=== PATIENT | male | born 1950 | race Caucasian/White ===

== ENCOUNTER 2020-02-27 01:18 | Emergency (ER) | payer OTHER, MEDICARE ==
[2020-02-27] MEDS: fentaNYL 50 MCG/ML SDV IVPUSH ONE (01:45)
--- NOTE | 2020-02-27 02:05 | EDM.PDOC ---
ED HPI GENERAL MEDICAL PROBLEM - General Chief Complaint: General Stated Complaint: Fall, rib pain Time Seen by Provider: 02/27/20 01:18 Source of Information: Reports: Patient History Limitations: Reports: No Limitations - History of Present Illness INITIAL COMMENTS - FREE TEXT/NARRATIVE: Patient comes emergency department today from home by ambulance with concerns of a fall and a loss of consciousness. This patient was getting up and ambulating in his house after drinking alcohol tonight when he stumbled on his shoes and he fell. When he fell he struck his face and his head and had a loss of consciousness according to the about 1 minute. He also landed injuring his left chest wall. Prior to his fall he had no symptoms of weakness dizziness lightheadedness or. He tripped on his shoes and fell. He had a loss of consciousness for about 1 minute. He denies any visual acuity changes. He does complain of a headache. He also complains of some neck pain but he kind of chronically has neck pain from cervical surgery on C3. He denies any paresthesias in upper or lower extremities. Denies any change in the functionality of his upper or lower extremities. He does complain of shortness of breath primarily because it hurts so bad to take a deep breath. His pain is severe on the left anterolateral chest and the anterior axillary line. No abdominal pain nausea or vomiting. No back pain. No loss of bowel or bladder. No Covid exposure no Covid symptoms. left rib/lower chest Pain Score (Numeric/FACES): 5 - Related Data Allergies Allergy/AdvReac Type Severity Reaction Status Date / Time tramadol [From Ultram] Allergy Other Verified 02/27/20 03:11 Home Meds: Home Meds . [Unable to Verify Home Med List] 02/27/20 [History] ED ROS GENERAL - Review of Systems Review Of Systems: Comprehensive ROS is negative, except as noted in HPI. ED EXAM, GENERAL - Physical Exam Exam: See Below Free Text/Narrative:: The patient is holding his left anterolateral chest and the anterior mid axillary line moaning in pain and stating that he cannot catch his breath. He is clearly in no respiratory distress. He did just have a left hip replaced which is made it difficult for him to ambulate at times and he thinks that is why he fell tripping on his shoes. Exam Limited By: No Limitations General Appearance: Alert, WD/WN, Mild Distress Eye Exam: Bilateral Eye: EOMI, PERRL Ears: Normal External Exam, Normal TMs Nose: Normal Inspection, Normal Mucosa Throat/Mouth: Normal Inspection, Normal Lips Head: Normocephalic. No: Atraumatic (He has an abrasion on the top of his head without any bony deformity or crepitus. There is a small abrasion to his right zygomatic arch without any bony deformity the rest of his face is atraumatic.) Neck: Normal Inspection, Supple (C Collar in place prior to arrival. ), Tender Lateral. No: Tender Midline Respiratory/Chest: No Respiratory Distress, Lungs Clear, Normal Breath Sounds, Other (He has tenderness and bruising in the anterior left mid axillary line about the fifth intercostal space. There is no crepitus subcutaneous emphysema or overt bony deformity.) Cardiovascular: Normal Peripheral Pulses, Regular Rate, Rhythm Peripheral Pulses: 2+: Radial (L), Radial (R), Posterior Tibial (L), Posterior Tibial (R), Dorsalis Pedis (L), Dorsalis Pedis (R) GI/Abdominal: Normal Bowel Sounds, Soft, Non-Tender, Pelvis Stable (Male) Exam: Deferred Rectal (Males) Exam: Deferred Back Exam: Normal Inspection, Full Range of Motion Extremities: Normal Inspection, Normal Range of Motion, Non-Tender, Normal Capillary Refill, Other (All healed lateral incision of the left hip consistent with a hip replacement that is unremarkable.) Neurological: Alert, Oriented, CN II-XII Intact, Normal Cognition, Normal Gait, No Motor/Sensory Deficits Psychiatric: Normal Affect, Normal Mood Skin Exam: Warm, Dry, Intact, Normal Color, No Rash Course - Vital Signs Last Recorded V/S: Last Vital Signs Temp 98.7 F 02/27/20 01:18 Pulse 91 02/27/20 02:50 Resp 18 02/27/20 02:50 BP 153/94 H 02/27/20 02:50 Pulse Ox 96 02/27/20 02:50 - Orders/Labs/Meds Labs: Laboratory Tests 02/27/20 02/27/20 Range/Units 01:57 01:57 WBC 6.9 (4.0-10.0) x10^3/uL RBC 4.64 (4.5-6.0) x10^6/uL Hgb 15.7 (14.0-18.0) g/dL Hct 44.2 (40.0-52.0) % MCV 95.3 H (78.0-93.0) fL MCH 33.8 H (26.0-32.0) pg MCHC 35.5 (32.0-36.0) g/dL RDW Coeff of Ethan 13.4 (10.0-15.0) % Plt Count 173 (130-400) x10^3/uL Neut % (Auto) 67.7 (50.0-80.0) % Lymph % (Auto) 19.9 L (25.0-50.0) % [place] % (Auto) 10.1 (2.0-11.0) % Eos % (Auto) 1.4 (0.0-4.0) % Baso % (Auto) 0.9 (0.2-1.2) % Sodium 137 (136-145) mmol/L Potassium 3.2 L (3.5-5.1) mmol/L Chloride 97 L (98-107) mmol/L Carbon Dioxide 24 (21-32) mmol/L Anion Gap 19.2 (10-20) mmol/L BUN 15 (7-18) mg/dL Creatinine 1.3 (0.70-1.30) mg/dL Est Cr Clr Drug Dosing TNP Estimated GFR (MDRD) 55 Glucose 135 H (74-106) mg/dL Calcium 8.9 (8.5-10.1) mg/dL Corrected Calcium 8.98 (8.5-10.1) mg/dL Total Bilirubin 0.7 (0.2-1.0) mg/dL AST 85 H (15-37) U/L ALT 105 H (16-63) U/L Alkaline Phosphatase 102 (46-116) U/L Total Protein 7.3 (6.4-8.2) g/dL Albumin 3.9 (3.4-5.0) g/dL Globulin 3.4 Albumin/Globulin Ratio 1.15 Ethyl Alcohol 287 H (0-3) mg/dL Meds: Medications Discontinued Medications Generic Name Dose Route Start Last Admin Trade Name Freq PRN Reason Stop Dose Admin Fentanyl 50 mcg 02/27/20 01:41 12/10/20 01:45 Fentanyl IVPUSH 02/27/20 01:42 50 mcg ONETIME ONE Administration Hydromorphone HCl 0.5 mg 02/27/20 02:39 02/27/20 02:45 Dilaudid IV 02/27/20 02:40 0.5 mg ONETIME ONE Administration Ketorolac Tromethamine 15 mg 02/27/20 03:58 02/27/20 04:05 Toradol IVPUSH 02/27/20 03:59 15 mg ONETIME ONE Administration - Radiology Interpretation Free Text/Narrative:: CT of the head per radiology shows no acute process. CT cervical spine shows no acute fracture or subluxation some other chronic changes. Per radiology. Chest x-ray no hemopneumothorax. No rib fractures per radiology. - Re-Assessments/Exams Free Text/Narrative Re-Assessment/Exam: 02/27/20 02:05 The c-collar was left in place. Labs are drawn. She is quite uncomfortable holding his left chest. He was given 50 mcg of fentanyl. He smells highly of alcoholic beverages does admit to drinking alcohol tonight. Laboratory evaluation White blood cell count 6.9, hemoglobin 15.7, platelets 173. Sodium 137 potassium 3.2 chloride 97 BUN 15 creatinine 1.3T bili is 0.7 AST 85 ALT 105. Alcohol 287. CT of the head neck and chest per radiology with no acute findings. I was able to remove the C collar and he was able to flex and extend his neck without any pain or parathesia. He was still having quite a bit of rib chest pain. He was given Dilaudid as well as Toradol. Despite his chest x-ray being negative urology for fractures he most likely has a couple broken ribs. There is no hemopneumothorax. He is quite intoxicated at this time and it is somewhat difficult to physically assess him. We did get him up from the bed and ambulated around the emergency department. He was able to ambulate very easily without difficulty. Repeat primary and secondary survey does not elicit any new findings. We will discharge him home by cab with his who is at home she does not drive at night. He is comfortable with this plan and his questions are answered. Departure - Departure Time of Disposition: 03:58 Disposition: Home, Self-Care 01 Clinical Impression: Facial abrasion Qualifiers: Encounter type: initial encounter Qualified Code(s): S00.81XA - Abrasion of other part of head, initial encounter Acute alcoholic intoxication Qualifiers: Complication of substance-induced condition: uncomplicated Qualified Code(s): F10.920 - Alcohol use, unspecified with intoxication, uncomplicated Chest wall injury Qualifiers: Encounter type: initial encounter Qualified Code(s): S29.9XXA - Unspecified injury of thorax, initial encounter - Discharge Information Instructions: Binge-Drinking Information, Adult, Abrasion, [id number], Blunt Chest Trauma Referrals: PCP,Unobtain [Ordering Only Provider] - Forms: ED Department Discharge Additional Instructions: Home rest the net few days. Drink plenty of fluids especially gatorade and or powerade. Ice to the sore areas. Abrasions cleanse twice daily with soap and water. Bacitracin and bandage until healed. If you are interested in assistance with your alcohol usage. Either follow up with [facility] or see your PCP. Tylenol and or Ibuprofen as needed for pain. Return to the ED if new or worsening symptoms. Follow up with PCP in the next 4-6 days if not improving sooner if worse. Sepsis Event Note (ED) - Focused Exam Vital Signs: Vital Signs Temp Pulse Resp BP Pulse Ox 02/27/20 02:50 91 18 153/94 H 96 02/27/20 01:18 98.7 F 94 16 137/79 95
[2020-02-27 02:24] LABS: ANION GAP 19.2 mmol/L (10-20); CHLORIDE,CL 97 mmol/L (98-107); SODIUM,NA 137 mmol/L (136-145)
[2020-02-27] MEDS: HYDROmorphone 0.5 MG/0.5 ML Syringe IV ONE (02:45)
[2020-02-27] MEDS: Ketorolac 30 MG/ML SDV IVPUSH ONE (04:05)
--- NOTE | 2020-02-27 08:07 | CR ---
[id number] RAD/RAD Chest PA or AP 1V EXAM: FRONTAL CHEST INDICATION: Fall with left rib pain, shortness of breath and left chest bruising. COMPARISON: CT January 15, 2019. DISCUSSION: Left anterior fifth and sixth rib fractures are suggested. No pneumothorax or pleural fluid is currently identified. Bibasilar linear opacities most consistent with atelectasis. Prominent cardiac shadow with no evidence of heart failure. Tortuous thoracic aorta. Results called at time of dictation. IMPRESSION: 1. Acute anterior left fifth and sixth rib fractures are suggested. No pneumothorax. Junior Carrera MD 02/27/20 0805 Thank you for allowing us to participate in the care of your patient.
--- NOTE | 2020-02-27 08:07 | CT ---
[id number] CT/CT Head WO IV EXAM: NONCONTRAST HEAD CT INDICATION: Fall with head injury and loss of consciousness. COMPARISON: None. DISCUSSION: Mild right anterior scalp soft tissue swelling. There is mild generalized atrophy. Mild multifocal white matter hypoattenuation is nonspecific, but generally ascribed to chronic small vessel ischemia. Possible small chronic bilateral basal ganglia lacunar infarcts. No mass effect or midline shift. No acute hemorrhage or extra-axial fluid collection. No acute territorial infarct is identified. A limited look at the orbits and paranasal sinuses is unremarkable. IMPRESSION: 1. No acute intracranial findings. Junior Carrera MD 02/27/20 0804 Thank you for allowing us to participate in the care of your patient.
--- NOTE | 2020-02-27 08:12 | CT ---
[id number] CT/CT Cervical Spine WO IV EXAM: NONCONTRAST CERVICAL SPINE CT INDICATION: Fall with cervical pain. COMPARISON: Radiographs January 17, 2008. DISCUSSION: Straightening of the cervical lordosis. Anterior fusion with plate and screw fixation and osseous bridging across the vertebral bodies at C4-C5. No evident hardware complication. Advanced disc degeneration at T1-T2 with moderate changes at the remaining disc levels. Acquired versus congenital fusion across the facets bilaterally at C2-C3 and on the left C3-C4 and C4-C5. There is at least moderate facet arthropathy throughout the cervical spine. These changes result in osseous central and foraminal stenosis at multiple levels with central stenosis most significant at at C6-C7 and significant foraminal stenosis seen at multiple levels. No acute fracture or subluxation is identified. IMPRESSION: 1. No acute findings. Junior Carrera MD 02/27/20 [id number] Thank you for allowing us to participate in the care of your patient.
== END 2020-02-27 04:20 | disposition home or self-care (01) ==
LOC: VM.ED 01:18
DX: S22.42XA Multiple fractures of ribs, left side, initial encounter for closed fracture (principal); S00.81XA Abrasion of other part of head, initial encounter; F10.120 Alcohol abuse with intoxication, uncomplicated; Y90.8 Blood alcohol level of 240 mg/100 ml or more; Z88.5 Allergy status to narcotic agent; W01.10XA Fall on same level from slipping, tripping and stumbling with subsequent striking against unspecified object, initial encounter
CPT/HCPCS: 36415; 70450; 71045; 72125; 80053; 80307; 85025; 96374; 96375; 99284; 99285-25; J1170; J1885; J3010

== ENCOUNTER 2020-07-05 10:14 | Emergency (ER) | payer OTHER, MEDICARE ==
[2020-07-05] MEDS ORDERED: Sodium Chloride 0.9% 10 ML Syringe FLUSH PRN (10:24)
[2020-07-05] MEDS ORDERED: Ketorolac 30 MG/ML SDV IVPUSH ONE (10:42)
--- NOTE | 2020-07-05 11:46 | EDM.PDOC ---
ED HPI GENERAL MEDICAL PROBLEM - General Chief Complaint: General Stated Complaint: FELL 07/04/2020 Time Seen by Provider: 07/05/20 10:19 Source of Information: Reports: Patient History Limitations: Reports: Other (forgetful, poor historian) - History of Present Illness INITIAL COMMENTS - FREE TEXT/NARRATIVE: Patient reports he fell yesterday in the bathroom when he slipped on water after a bath/shower. He denies hitting his head. Fell on his left chest. States he had a prior rib fracture to that same side. Notes some lower back/tailbone pain. No pain to left leg. Hip replacement there. 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 No shortening or rotation of left leg. No upper extremity pain/complaints. 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: Other (see below) (none) Left Thoracic Pain Score (Numeric/FACES): 9 Sacral Pain Score (Numeric/FACES): 9 - Related Data Allergies Allergy/AdvReac Type Severity Reaction Status Date / Time tramadol [From Ultram] Allergy Other Verified 07/05/20 10:47 Home Meds: Home Meds Albuterol Sulfate [Albuterol Sulfate Hfa] 2 puff INH QID PRN 03/25/20 [History] Budesonide/Formoterol Fumarate [Budesonide-Formoterol 160-4.5] 2 puff INH BID 03/25/20 [History] Cyclobenzaprine HCl 10 mg PO BEDTIME PRN 03/25/20 [History] DULoxetine HCl [Cymbalta] 60 mg PO DAILY 03/25/20 [History] Folic Acid 1 mg PO DAILY 03/25/20 [History] Guaifen/Dextromethorphan/PE [Dm-Guaif-PE 18-200-10 mg/15 ml] 10 ml PO Q6H PRN 03/25/20 [History] HCTZ/Triamterene [Maxzide 25-37.5 MG] 1 tab PO DAILY 03/25/20 [History] Latanoprost/Pf [Latanoprost 0.005% Eye Drop] 1 drop EYEBOTH BEDTIME 03/25/20 [History] Lidocaine HCl/PF [Lidocaine HCl 4% Ampul] 1 applic TOP BID 03/25/20 [History] Multivitamin with Minerals [Multivitamins with Minerals] 1 each PO DAILY 03/25/20 [History] Naltrexone 50 mg PO DAILY 03/25/20 [History] Nicotine [Nicotine Patch] 1 patch TOP DAILY 03/25/20 [History] Pantoprazole [ProTONIX] 40 mg PO BID 03/25/20 [History] Sildenafil [Viagra] 50 mg PO BEDTIME PRN 03/25/20 [History] Sucralfate 1 gm PO BID PRN 03/25/20 [History] Thiamine [Vitamin B-1] 100 mg PO DAILY 03/25/20 [History] Tiotropium [Spiriva] 18 mcg INH DAILY 03/25/20 [History] amLODIPine Besylate [Amlodipine Besylate] 10 mg PO DAILY 03/25/20 [History] atorvaSTATin Calcium [Atorvastatin Calcium] 40 mg PO BEDTIME 03/25/20 [History] Past Medical History HEENT History: Reports: Hard of Hearing Cardiovascular History: Reports: Heart Failure, High Cholesterol, Hypertension Respiratory History: Reports: COPD, Other (See Below) Other Respiratory History: sleep related hypoventilation, upper airway resistance syndrome Gastrointestinal History: Reports: Colon Polyp, GERD, Other (See Below) Other Gastrointestinal History: Barretts esophagus without dysplasia Genitourinary History: Reports: BPH, Chronic Renal Insuffiency, Urinary Incontinence, Other (See Below) Other Genitourinary History: renal glycosuria Musculoskeletal History: Reports: Back Pain, Chronic, Osteoarthritis, Other (See Below) Other Musculoskeletal History: cervicalgia, DJD, myalgia, spondylosis Neurological History: Reports: CVA, Migraines, Neuropathy, Peripheral, Other (See Below) Other Neuro History: dizziness and giddiness Psychiatric History: Reports: Depression, PTSD, Other (See Below) Other Psychiatric History: alcohol dependence, nicotine dependence Endocrine/Metabolic History: Reports: Diabetes, Type II, Hyperthyroidism, Obesity/BMI 30+, Vitamin D Deficiency Hematologic History: Reports: Anemia, Other (See Below) Other Hematologic History: leucocytosis, secondary polycythemia Dermatologic History: Reports: Seborrheic Dermatitis, Other (See Below) Other Dermatologic History: dermatitis - Past Surgical History Musculoskeletal Surgical History: Reports: Other (See Below) Other Musculoskeletal Surgeries/Procedures:: left hip surgery Social & Family History - Family History Cardiac: Reports: CAD, CA Other Cardiac Family History: MOTHER- CAD. FATHER- CA : Reports: Other (See Below) Other Family History: SON- KIDNEY STONE Neurological: Reports: Dementia Other Neurological Family History: MOTHER- DEMENTIA. SISTER- DEMENTIA - Caffeine Use Caffeine Use: Reports: Coffee - Living Situation & Occupation Living situation: Reports: (Has children from a previous marriage. 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.) ED ROS GENERAL - Review of Systems Review Of Systems: See Below Constitutional: Reports: No Symptoms HEENT: Reports: No Symptoms Respiratory: Reports: No Symptoms Cardiovascular: Reports: No Symptoms Endocrine: Reports: No Symptoms GI/Abdominal: Reports: No Symptoms : Reports: No Symptoms Musculoskeletal: Reports: Back Pain Skin: Reports: No Symptoms Neurological: Reports: No Symptoms Psychiatric: Reports: No Symptoms Hematologic/Lymphatic: Reports: No Symptoms Immunologic: Reports: No Symptoms ED EXAM, GENERAL - Physical Exam Exam: See Below Exam Limited By: No Limitations General Appearance: Alert, WD/WN, No Apparent Distress Ears: Normal External Exam, Normal Canal, Hearing Grossly Normal, Normal TMs Ear Exam: Bilateral Ear: Auricle Normal, Canal Normal, TM normal Nose: Normal Inspection, Normal Mucosa, No Blood Throat/Mouth: Normal Inspection, Normal Lips, Normal Teeth, Normal Gums, Normal Oropharynx, Normal Voice, No Airway Compromise Head: Atraumatic, Normocephalic Neck: Normal Inspection, Supple, Non-Tender, Full Range of Motion Respiratory/Chest: No Respiratory Distress, Lungs Clear, Normal Breath Sounds, No Accessory Muscle Use, Chest Non-Tender Cardiovascular: Normal Peripheral Pulses, Regular Rate, Rhythm, No Edema, No Gallop, No JVD, No Murmur, No Rub GI/Abdominal: Normal Bowel Sounds, Soft, Non-Tender, No Organomegaly, No Distention, No Abnormal Bruit, No Mass Back Exam: Normal Inspection, Full Range of Motion, NT Extremities: Normal Inspection, Normal Range of Motion, Non-Tender, Normal Capillary Refill, No Pedal Edema Neurological: Alert, Oriented, CN II-XII Intact, Normal Cognition, Normal Gait, Normal Reflexes, No Motor/Sensory Deficits Psychiatric: Normal Affect, Normal Mood Skin Exam: Warm, Dry, Intact, Normal Color, No Rash Lymphatic: No Adenopathy Course - Vital Signs Last Recorded V/S: Last Vital Signs Temp 36.6 C 07/05/20 10:14 Pulse 97 07/05/20 10:14 Resp 18 07/05/20 10:14 BP 125/74 07/05/20 10:14 Pulse Ox 98 07/05/20 10:14 - Orders/Labs/Meds Orders: Active Orders 24 hr Category Date Time Status Sodium Chloride 0.9% [Saline Flush] Med 07/05/20 10:24 Active 10 ml FLUSH ASDIRECTED PRN Saline Lock Insert [OM.PC] Routine Oth 07/05/20 10:24 Ordered Medication Orders Sodium Chloride (Sodium Chloride 0.9% 10 Ml Syringe) 10 ml FLUSH ASDIRECTED PRN PRN Reason: Keep Vein Open Meds: Medications Generic Name Dose Route Start Last Admin Trade Name Freq PRN Reason Stop Dose Admin Sodium Chloride 10 ml 07/05/20 10:24 Sodium Chloride 0.9% 10 Ml Syringe FLUSH ASDIRECTED PRN Keep Vein Open Discontinued Medications Generic Name Dose Route Start Last Admin Trade Name Freq PRN Reason Stop Dose Admin Ketorolac Tromethamine 30 mg 07/05/20 10:42 07/05/20 10:55 Ketorolac 30 Mg/Ml Sdv IVPUSH 07/05/20 10:43 30 mg ONETIME ONE Administration Morphine Sulfate 4 mg 07/05/20 12:00 07/05/20 12:10 Morphine 4 Mg/Ml Syringe IVPUSH 07/05/20 12:01 4 mg ONETIME ONE Administration Ondansetron HCl 4 mg 07/05/20 12:14 07/05/20 12:16 Ondansetron 4 Mg/2 Ml Sdv IVPUSH 07/05/20 12:15 4 mg ONETIME ONE Administration Departure - Departure Time of Disposition: 13:35 Disposition: Home, Self-Care 01 Condition: Fair Clinical Impression: Chest wall injury Qualifiers: Encounter type: initial encounter Qualified Code(s): S29.9XXA - Unspecified injury of thorax, initial encounter - Discharge Information *PRESCRIPTION DRUG MONITORING PROGRAM REVIEWED*: Not Applicable *COPY OF PRESCRIPTION DRUG MONITORING REPORT IN PATIENT CHAD: Not Applicable Instructions: Low Back Sprain or Strain Rehab-SportsMed, Rib Contusion Referrals: April Cavanaugh MD [Primary Care Provider] - Forms: ED Department Discharge Additional Instructions: 1. alternate heat and ice 2. alternate tylenol and ibuprofen/aleve for pain and swelling 3. rest as needed 4. Follow up with your primary doctor if symptoms do not improve 5. Please return to the ED if symptoms worsen Sepsis Event Note (ED) - Evaluation Sepsis Screening Result: No Definite Risk - Focused Exam Vital Signs: Vital Signs Temp Pulse Resp BP Pulse Ox 07/05/20 10:14 36.6 C 97 18 125/74 98 - Problem List & Annotations (1) Chest wall injury SNOMED Code(s): 49356632 Code(s): S29.9XXA - UNSPECIFIED INJURY OF THORAX, INITIAL ENCOUNTER Status: Acute Current Visit: No Qualifiers: Encounter type: initial encounter Qualified Code(s): S29.9XXA - Unspecified injury of thorax, initial encounter - My Orders Last 24 Hours: My Active Orders 07/05/20 10:24 Sodium Chloride 0.9% [Saline Flush] 10 ml FLUSH ASDIRECTED PRN Saline Lock Insert [OM.PC] Routine - Assessment/Plan Last 24 Hours: My Active Orders 07/05/20 10:24 Sodium Chloride 0.9% [Saline Flush] 10 ml FLUSH ASDIRECTED PRN Saline Lock Insert [OM.PC] Routine Assessment:: Lumbar back strain Rib contusion Plan: Patient to be discharged home with follow up with primary doctor. Treated with 10 mg morphine and 4 mg zofran due to nausea. Encouraged to rest, alternate ice and heat, soak in warm bath. Follow up with PCP for extended symptoms Call or return for any worsening or concerning symptoms
[2020-07-05] MEDS ORDERED: Morphine 4 MG/ML Syringe IVPUSH ONE (12:00)
[2020-07-05] MEDS ORDERED: Ondansetron 4 MG/2 ML SDV IVPUSH ONE (12:14)
--- NOTE | 2020-07-05 12:15 | CR ---
[id number] RAD/RAD Lumbar Spine 2-3V EXAM: AP AND LATERAL LUMBAR SPINE. INDICATION: Trauma COMPARISON: No previous similar exam is available for comparison. FINDINGS: No fracture or subluxation is seen There are degenerative changes at the lumbosacral junction IMPRESSION: NO FRACTURE OR SUBLUXATION. Michael Madden MD 07/05/20 [id number] Thank you for allowing us to participate in the care of your patient.
--- NOTE | 2020-07-05 12:19 | CR ---
[id number] RAD/RAD Pelvis 1-2V Exam: RAD Pelvis 1-2V Clinical Data: TRAUMA COMPARISON: CORRELATION IS MADE WITH LAST YEAR'S EXAM FINDINGS: A left hip prosthesis is now seen There is no new fracture or dislocation IMPRESSION: NO NEW FRACTURE OR DISLOCATION Michael Madden MD 07/05/20 [id number] Thank you for allowing us to participate in the care of your patient.
--- NOTE | 2020-07-05 12:21 | CR ---
[id number] RAD/RAD Chest PA And Lateral EXAM: RAD Chest PA And Lateral CLINICAL DATA: TRAUMA COMPARISON: CORRELATION IS MADE WITH MARCH 05, 2020 FINDINGS: Old left rib fractures are seen No obvious new fractures are identified The lungs are clear The cardiac silhouette is enlarged but stable IMPRESSION: NO ACUTE PROCESS. Michael Madden MD 07/05/20 [id number] Thank you for allowing us to participate in the care of your patient.
== END 2020-07-05 13:18 | disposition home or self-care (01) ==
LOC: VM.ED 10:14
CPT/HCPCS: 71046; 72100; 72170; 96374; 96375; 99283; 99284; J1885; J2270; J2405

== ENCOUNTER 2020-08-20 18:04 | Observation (INO) | payer OTHER, MEDICARE ==
[2020-08-20] MEDS ORDERED: Diphtheria,Pertussis(Acell),Tetanus Vaccine 0.5 ML Syringe IM ONE (18:12)
[2020-08-20] MEDS: Lidocaine 1% 30 ML SDV INJECT ONE ×2 (19:16→20:16)
[2020-08-20] MEDS ORDERED: Sodium Chloride 0.9% 10 ML Syringe FLUSH PRN (19:25)
--- NOTE | 2020-08-20 19:27 | CT ---
[id number] CT/CT Cervical Spine WO IV Exam: CT Cervical Spine WO IV Clinical Data: TRAUMA COMPARISON: CORRELATION IS MADE WITH FEBRUARY 27, 2020 FINDINGS: No fracture or subluxation is seen There are extensive surgical and degenerative changes. The prevertebral soft tissues are unremarkable. IMPRESSION: NO FRACTURE OR SUBLUXATION Michael Madden MD 08/20/20 [id number] Thank you for allowing us to participate in the care of your patient.
--- NOTE | 2020-08-20 19:27 | CT ---
[id number] CT/CT Head WO IV EXAM: CT Head WO IV CLINICAL DATA: TRAUMA COMPARISON: CORRELATION IS MADE WITH FEBRUARY 27, 2020 FINDINGS: There is no mass or mass effect. There is no hemorrhage or hydrocephalus. There are no extra-axial fluid collections. There are no sites of abnormal attenuation. IMPRESSION: NO PLAIN CT EVIDENCE OF ACUTE INTRACRANIAL PROCESS. Michael Madden MD 08/20/20 [id number] Thank you for allowing us to participate in the care of your patient.
[2020-08-20] MEDS ORDERED: Lactated Ringers 1,000 ML IV ONE (19:43)
[2020-08-20] MEDS ORDERED: Morphine 2 MG/ML SYRINGE IVPUSH ONE (19:43)
--- NOTE | 2020-08-20 20:00 | EDM.PDOC ---
ED HPI GENERAL MEDICAL PROBLEM - General Chief Complaint: Laceration Stated Complaint: fall head injury Time Seen by Provider: 08/20/20 18:15 Source of Information: Reports: Patient History Limitations: Reports: No Limitations - History of Present Illness INITIAL COMMENTS - FREE TEXT/NARRATIVE: Patient comes emergency department today from home by ambulance with concerns of a fall and head injury. This patient was at home when he was walking in his kitchen he relates that he tripped on his own feet and fell striking his right forehead on the stove. His related that he had a 1 to 2-second loss of consciousness. The ambulance was summoned he was brought to the emergency department. Upon arrival the patient is alert and appropriate. He recalls the details of the accident. He is really unsure if he lost consciousness he does not think he did. He complains of pain to his right eyebrow where there is a laceration. Prior to his fall he denies any weakness dizziness lightheadedness. No vertigo. No syncope. No palpitations. No chest pain no shortness of breath or difficulty breathing. He has felt fine all day today. He is not on any blood thinners other than aspirin that he takes daily. He does complain of a headache. No double vision. No vertigo lightheadedness weakness dizziness. No chest pain no shortness of breath or difficulty breathing. No cough or congestion. No fever no chills. He does complain of some neck stiffness which she relates is most likely chronic as he chronically struggles with neck stiffness and neck pain as he had a fusion in his cervical spine. Really does not feel much more than his normal chronic neck pain. He denies any paresthesias of his upper or lower extremities. He denies any change in the functionality of his upper or lower extremities. No loss of bowel or bladder. No abdominal pain nausea or vomiting. No hematuria dysuria or urinary frequency. No black or tarry stools. Right Face/Facial Pain Score (Numeric/FACES): 5 - Related Data Allergies Allergy/AdvReac Type Severity Reaction Status Date / Time tramadol [From Ultram] Allergy Other Verified 08/20/20 18:20 Home Meds: Home Meds Albuterol Sulfate [Albuterol Sulfate Hfa] 2 puff INH QID PRN 03/25/20 [History] Budesonide/Formoterol Fumarate [Budesonide-Formoterol 160-4.5] 2 puff INH BID 03/25/20 [History] Cyclobenzaprine HCl 10 mg PO BEDTIME PRN 03/25/20 [History] DULoxetine HCl [Cymbalta] 60 mg PO DAILY 03/25/20 [History] Folic Acid 1 mg PO DAILY 03/25/20 [History] Guaifen/Dextromethorphan/PE [Dm-Guaif-PE 18-200-10 mg/15 ml] 10 ml PO Q6H PRN 03/25/20 [History] HCTZ/Triamterene [Maxzide 25-37.5 MG] 1 tab PO DAILY 03/25/20 [History] Latanoprost/Pf [Latanoprost 0.005% Eye Drop] 1 drop EYEBOTH BEDTIME 03/25/20 [History] Lidocaine HCl/PF [Lidocaine HCl 4% Ampul] 1 applic TOP BID 03/25/20 [History] Multivitamin with Minerals [Multivitamins with Minerals] 1 each PO DAILY 03/25/20 [History] Naltrexone 50 mg PO DAILY 03/25/20 [History] Nicotine [Nicotine Patch] 1 patch TOP DAILY 03/25/20 [History] Pantoprazole [ProTONIX] 40 mg PO BID 03/25/20 [History] Sildenafil [Viagra] 50 mg PO BEDTIME PRN 03/25/20 [History] Sucralfate 1 gm PO BID PRN 03/25/20 [History] Thiamine [Vitamin B-1] 100 mg PO DAILY 03/25/20 [History] Tiotropium [Spiriva] 18 mcg INH DAILY 03/25/20 [History] atorvaSTATin Calcium [Atorvastatin Calcium] 40 mg PO BEDTIME 03/25/20 [History] Aspirin/Caffeine [Mery Back & Body Caplet] 1 each PO TID PRN 07/29/20 [History] oxyCODONE HCl [Oxycodone HCL] 1 tab PO TID PRN 07/29/20 [History] Gabapentin [Neurontin] 300 mg PO QID 08/13/20 [History] Past Medical History HEENT History: Reports: Hard of Hearing Cardiovascular History: Reports: Heart Failure, High Cholesterol, Hypertension Respiratory History: Reports: COPD, Other (See Below) Other Respiratory History: sleep related hypoventilation, upper airway resistance syndrome Gastrointestinal History: Reports: Colon Polyp, GERD, Other (See Below) Other Gastrointestinal History: Barretts esophagus without dysplasia Genitourinary History: Reports: BPH, Chronic Renal Insuffiency, Urinary Incontinence, Other (See Below) Other Genitourinary History: renal glycosuria Musculoskeletal History: Reports: Back Pain, Chronic, Osteoarthritis, Other (See Below) Other Musculoskeletal History: cervicalgia, DJD, myalgia, spondylosis Neurological History: Reports: CVA, Migraines, Neuropathy, Peripheral, Other (See Below) Other Neuro History: dizziness and giddiness Psychiatric History: Reports: Depression, PTSD, Other (See Below) Other Psychiatric History: alcohol dependence, nicotine dependence Endocrine/Metabolic History: Reports: Diabetes, Type II, Hyperthyroidism, Obesity/BMI 30+, Vitamin D Deficiency Hematologic History: Reports: Anemia, Other (See Below) Other Hematologic History: leucocytosis, secondary polycythemia Dermatologic History: Reports: Seborrheic Dermatitis, Other (See Below) Other Dermatologic History: dermatitis - Past Surgical History Musculoskeletal Surgical History: Reports: Other (See Below) Other Musculoskeletal Surgeries/Procedures:: left hip surgery Social & Family History - Family History Cardiac: Reports: CAD, [place] Other Cardiac Family History: MOTHER- CAD. FATHER- [place] : Reports: Other (See Below) Other Family History: SON- KIDNEY STONE Neurological: Reports: Dementia Other Neurological Family History: MOTHER- DEMENTIA. SISTER- DEMENTIA - Tobacco Use Tobacco Use Status *Q: Unknown Ever Used Tobacco - Caffeine Use Caffeine Use: Reports: Coffee - Living Situation & Occupation Living situation: Reports: (Has children from a previous marriage. 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 ED EXAM, SKIN/RASH Exam: See Below Exam Limited By: No Limitations General Appearance: Alert, WD/WN, No Apparent Distress Eye Exam: Bilateral Eye: EOMI, Normal Inspection, PERRL Ears: Normal External Exam, Normal Canal, Normal TMs Nose: Normal Inspection, Normal Mucosa, No Blood Throat/Mouth: Normal Inspection (Other than very dry oral mucosa), Normal Lips, Normal Teeth, Normal Oropharynx, Normal Voice, No Airway Compromise Head: Atraumatic (Atraumatic scalp. There is a laceration of the right upper eyebrow and just above that as well.), Normocephalic, Facial Tenderness, Other (On the right upper eyebrow on the lateral aspect there is an approximate 5 cm linear transverse laceration that does extend in the subcutaneous tissue. Small amount of bruising to the upper eyelid. Extraocular movements are intact.) Neck: Normal Inspection, Supple, Full Range of Motion, Tender Lateral. No: Tender Midline Respiratory/Chest: No Respiratory Distress, No Accessory Muscle Use, Chest Non- Tender, Respiratory Distress, Wheezing (Faint expiratory wheezing bilaterally). No: Decreased Breath Sounds, Crackles, Rales, Rhonchi Cardiovascular: Normal Peripheral Pulses, Regular Rate, Rhythm Peripheral Pulses: 2+: Radial (L), Radial (R), Posterior Tibial (L), Posterior Tibial (R), Dorsalis Pedis (L), Dorsalis Pedis (R) GI/Abdominal: Normal Bowel Sounds, Soft, Non-Tender (Male) Exam: Deferred Rectal (Males) Exam: Deferred Back Exam: Normal Inspection, Full Range of Motion. No: Paraspinal Tenderness, Vertebral Tenderness Extremities: Normal Inspection, Normal Range of Motion, No Pedal Edema, Normal Capillary Refill Neurological: Alert, Oriented, CN II-XII Intact, Normal Cognition, Normal Gait, No Motor/Sensory Deficits Psychiatric: Normal Affect, Normal Mood Skin: Warm, Dry, Intact, Normal Color, No Rash ED SKIN PROCEDURES - Laceration/Wound Repair Right Forehead Appearance: Subcutaneous, Linear, Clean Distal NVT: Neuro & Vascular Intact Anesthetic Type: Local Local Anesthesia - Lidocaine (Xylocaine): 1% Plain Local Anesthetic Volume: 5cc Skin Prep: Chlorhexidine (Hibiciens), Saline Saline Irrigation (cc's): 100 Exploration/Debridement/Repair: Wound Explored, In a Bloodless Field, Explored to Base Closed with: Sutures Lac/Wound length In cm: 4.5 Suture Size: 6-0 # of Sutures: 1 (1 single running suture.) Suture Type: Running Tetanus Status Addressed: Yes (Updated today) Right Liberal Forehead Appearance: Superficial, Clean Distal NVT: Neuro & Vascular Intact Skin Prep: Chlorhexidine (Hibiciens), Saline Closed with: Dermabond Lac/Wound length In cm: 1.5 Tetanus Status Addressed: Yes (Updated today.) Course - Vital Signs Last Recorded V/S: Last Vital Signs Temp 97.8 F 08/21/20 01:42 Pulse 78 08/20/20 20:15 Resp 16 08/21/20 01:42 BP 120/63 08/21/20 01:42 Pulse Ox 94 L 08/21/20 01:42 - Orders/Labs/Meds Orders: Active Orders 24 hr Category Date Time Status EKG Documentation Completion [RC] STAT Care 08/20/20 19:26 Active Vaccines to be Administered [RC] PER UNIT ROUTINE Care 08/20/20 18:13 Active Sodium Chloride 0.9% [Saline Flush] Med 08/20/20 19:25 Active 10 ml FLUSH ASDIRECTED PRN Peripheral IV Insertion Adult [OM.PC] Stat Oth 08/20/20 19:25 Ordered Medication Orders Acetaminophen (Acetaminophen 325 Mg Tab) 650 mg PO Q4H PRN PRN Reason: Pain (Mild 1-3)/fever Last Admin: 08/20/20 22:50 Dose: 650 mg Documented by: JAYLEEN Hydrocodone Bitart/Acetaminophen (Acetaminophen/Hydrocodone 325-5 Mg Tab) 1 tab PO TID PRN PRN Reason: Pain (moderate 4-6) Last Admin: 08/20/20 22:52 Dose: 1 tab Documented by: JAYLEEN Albuterol (Albuterol Hfa 18 Gm Inhaler) 0 gm INH QID PRN PRN Reason: Shortness of Breath Aspirin (Aspirin 81 Mg Tab.Chew) 324 mg PO DAILY [facility] Atorvastatin Calcium (Atorvastatin 40 Mg Tab) 40 mg PO BEDTIME SHARIFA Cyclobenzaprine HCl (Cyclobenzaprine 10 Mg Tab) 10 mg PO BEDTIME PRN PRN Reason: Muscle Spasm Last Admin: 08/21/20 01:31 Dose: 10 mg Documented by: JAYLEEN Duloxetine HCl (Duloxetine 30 Mg Cap) 60 mg PO DAILY [facility] Folic Acid (Folic Acid 1 Mg Tab) 1 mg PO DAILY [facility] Gabapentin (Gabapentin 300 Mg Cap) 300 mg PO QID [facility] Lactated Ringer's (Ringers, Lactated) 1,000 mls @ 150 mls/hr IV ASDIRECTED SHARIFA Last Admin: 08/21/20 02:54 Dose: 150 mls/hr Documented by: Infusion: 08/21/20 02:54 Dose: 150 mls/hr Documented by: Admin: 08/20/20 22:50 Dose: 150 mls/hr Documented by: JAYLEEN Latanoprost (Latanoprost 0.005% Ophth Soln 2.5 Ml Bottle) 0 ml EYEBOTH BEDTIME SHARIFA Mometasone Furoate (Mometasone Furoate Powder 220 Mcg/Puff 14 Dose Inhaler) 2 puff INH BID SHARIFA Multivitamins/Minerals (Multivitamins With Iron/Calcium/Folic Acid/Minerals Tab) 1 tab PO DAILY [facility] Pantoprazole Sodium (Pantoprazole 40 Mg Tab.Cr) 40 mg PO BIDAC SHARIFA Sodium Chloride (Sodium Chloride 0.9% 10 Ml Syringe) 10 ml FLUSH ASDIRECTED PRN PRN Reason: Keep Vein Open Thiamine HCl (Thiamine 100 Mg Tab) 100 mg PO DAILY [facility] Tiotropium [place] (Tiotropium [place] 4 Gm Inhalation [place] (2.5mcg/1 Dose; 10 Doses)) 0 gm .XX DAILY SHAR[facility]A Triamterene/Hydrochlorothiazide (Hydrochlorothiazide/Triamterene 25-37.5 Tab) 1 each PO DAILY SH[facility]A Labs: Laboratory Tests 08/20/20 08/20/20 08/20/20 Range/Units 19:43 19:43 19:43 WBC 9.7 (4.0-10.0) x10^3/uL RBC 4.95 (4.5-6.0) x10^6/uL Hgb 17.8 D (14.0-18.0) g/dL Hct 49.2 (40.0-52.0) % MCV 99.4 H D (78.0-93.0) fL MCH 36.0 H (26.0-32.0) pg MCHC 36.2 H (32.0-36.0) g/dL RDW Coeff of Ethan 12.4 (10.0-15.0) % Plt Count 188 (130-400) x10^3/uL Neut % (Auto) 74.0 (50.0-80.0) % Lymph % (Auto) 15.6 L (25.0-50.0) % [place] % (Auto) 8.6 (2.0-11.0) % Eos % (Auto) 1.1 (0.0-4.0) % Baso % (Auto) 0.7 (0.2-1.2) % Sodium 137 (136-145) mmol/L Potassium 3.4 L (3.5-5.1) mmol/L Chloride 98 (98-107) mmol/L Carbon Dioxide 23 (21-32) mmol/L Anion Gap 19.4 H (5-15) mmol/L BUN 18 (7-18) mg/dL Creatinine 1.7 H (0.70-1.30) mg/dL Est Cr Clr Drug Dosing TNP Estimated GFR (MDRD) 40 Glucose 111 H (70-99) mg/dL Lactic Acid 3.5 H* (0.4-2.0) mmol/L Calcium 8.8 (8.5-10.1) mg/dL Corrected Calcium 9.0 (8.5-10.1) mg/dL Magnesium 1.9 (1.8-2.4) mg/dL Total Bilirubin 0.7 (0.2-1.0) mg/dL AST 29 (15-37) U/L ALT 35 (16-63) U/L Alkaline Phosphatase 101 (46-116) U/L Troponin I High Sens 111 H* (<=76) ng/L Total Protein 7.7 (6.4-8.2) g/dL Albumin 3.7 (3.4-5.0) g/dL Globulin 4.0 Albumin/Globulin Ratio 0.93 Ethyl Alcohol (0-3) mg/dL 08/20/20 Range/Units 19:43 WBC (4.0-10.0) x10^3/uL RBC (4.5-6.0) x10^6/uL Hgb (14.0-18.0) g/dL Hct (40.0-52.0) % MCV (78.0-93.0) fL MCH (26.0-32.0) pg MCHC (32.0-36.0) g/dL RDW Coeff of Ethan (10.0-15.0) % Plt Count (130-400) x10^3/uL Neut % (Auto) (50.0-80.0) % Lymph % (Auto) (25.0-50.0) % [place] % (Auto) (2.0-11.0) % Eos % (Auto) (0.0-4.0) % Baso % (Auto) (0.2-1.2) % Sodium (136-145) mmol/L Potassium (3.5-5.1) mmol/L Chloride (98-107) mmol/L Carbon Dioxide (21-32) mmol/L Anion Gap (5-15) mmol/L BUN (7-18) mg/dL Creatinine (0.70-1.30) mg/dL Est Cr Clr Drug Dosing Estimated GFR (MDRD) Glucose (70-99) mg/dL Lactic Acid (0.4-2.0) mmol/L Calcium (8.5-10.1) mg/dL Corrected Calcium (8.5-10.1) mg/dL Magnesium (1.8-2.4) mg/dL Total Bilirubin (0.2-1.0) mg/dL AST (15-37) U/L ALT (16-63) U/L Alkaline Phosphatase (46-116) U/L Troponin I High Sens (<=76) ng/L Total Protein (6.4-8.2) g/dL Albumin (3.4-5.0) g/dL Globulin Albumin/Globulin Ratio Ethyl Alcohol 84 H (0-3) mg/dL Meds: Medications Generic Name Dose Route Start Last Admin Trade Name Freq PRN Reason Stop Dose Admin Acetaminophen 650 mg 08/20/20 21:32 08/20/20 22:50 Acetaminophen 325 Mg Tab PO 650 mg Q4H PRN Administration Pain (Mild 1-3)/fever Hydrocodone Bitart/Acetaminophen 1 tab 08/20/20 21:32 08/20/20 22:52 Acetaminophen/Hydrocodone 325-5 Mg Tab PO 1 tab TID PRN Administration Pain (moderate 4-6) Albuterol 0 gm 08/20/20 23:27 Albuterol Hfa 18 Gm Inhaler INH QID PRN Shortness of Breath Aspirin 324 mg 08/21/20 08:00 Aspirin 81 Mg Tab.Chew PO DAILY SHARIFA Atorvastatin Calcium 40 mg 08/21/20 20:00 Atorvastatin 40 Mg Tab PO BEDTIME SHARIFA Cyclobenzaprine HCl 10 mg 08/20/20 23:19 08/21/20 01:31 Cyclobenzaprine 10 Mg Tab PO 10 mg BEDTIME PRN Administration Muscle Spasm Duloxetine HCl 60 mg 08/21/20 08:00 Duloxetine 30 Mg Cap PO DAILY [facility] Folic Acid 1 mg 08/21/20 08:00 Folic Acid 1 Mg Tab PO DAILY [facility] Gabapentin 300 mg 08/21/20 08:00 Gabapentin 300 Mg Cap PO QID [facility] Lactated Ringer's 1,000 mls @ 150 mls/hr 08/20/20 21:45 08/21/20 02:54 Ringers, Lactated IV 150 mls/hr ASDIRECTED SHARIFA Administration Latanoprost 0 ml 08/21/20 20:00 Latanoprost 0.005% Ophth Soln 2.5 Ml Bottle EYEBOTH BEDTIME SHARIFA Mometasone Furoate 2 puff 08/21/20 08:00 Mometasone Furoate Powder 220 Mcg/Puff 14 Dose Inhaler INH BID [facility] Multivitamins/Minerals 1 tab 08/21/20 08:00 Multivitamins With Iron/Calcium/Folic Acid/Minerals Tab PO DAILY [facility] Pantoprazole Sodium 40 mg 08/21/20 07:00 Pantoprazole 40 Mg Tab.Cr PO BIDAC [facility] Sodium Chloride 10 ml 08/20/20 19:25 Sodium Chloride 0.9% 10 Ml Syringe FLUSH ASDIRECTED PRN Keep Vein Open Thiamine HCl 100 mg 08/21/20 08:00 Thiamine 100 Mg Tab PO DAILY [facility] Tiotropium [place] 0 gm 08/21/20 08:00 Tiotropium [place] 4 Gm Inhalation [place] (2.5mcg/1 Dose; 10 Doses) .XX DAILY [facility] Triamterene/Hydrochlorothiazide 1 each 08/21/20 08:00 Hydrochlorothiazide/Triamterene 25-37.5 Tab PO DAILY [facility] Discontinued Medications Generic Name Dose Route Start Last Admin Trade Name Freq PRN Reason Stop Dose Admin Aspirin 324 mg 08/20/20 20:29 08/20/20 20:34 Aspirin 81 Mg Tab.Chew PO 08/20/20 20:30 324 mg ONETIME ONE Administration Diphtheria/Tetanus/Acell Pertussis 0.5 ml 08/20/20 18:12 08/20/20 19:15 Diphtheria,Pertussis(Acell),Tetanus Vaccine 0.5 Ml Syringe IM 08/20/20 18:13 0.5 ml .ONCE ONE Administration Lactated Ringer's 1,000 mls @ 999 mls/hr 08/20/20 19:43 08/20/20 20:00 Ringers, Lactated IV 08/20/20 20:43 999 mls/hr ONETIME ONE Administration Lactated Ringer's 1,000 mls @ 125 mls/hr 08/20/20 21:15 08/20/20 21:20 Ringers, Lactated IV 125 mls/hr ASDIRECTED SHARIFA Administration Lidocaine HCl 30 ml 08/20/20 18:12 08/20/20 20:16 Lidocaine 1% 30 Ml Sdv INJECT 08/20/20 18:13 30 ml ONETIME ONE Administration Morphine Sulfate 2 mg 08/20/20 19:43 08/20/20 20:11 Morphine 2 Mg/Ml Syringe IVPUSH 08/20/20 19:44 2 mg ONETIME ONE Administration - Re-Assessments/Exams Free Text/Narrative Re-Assessment/Exam: Tetanus was updated. CT head and Neck ordered 08/20/20 19:56 Once the patient returns from CT scanning I went in to start suturing his forehead. And I repeated the HPI and review of systems and all the patient tells me that he has been lightheaded and dizzy most of the day. Every time he stands up he feels lightheaded. He has never had any vertigo type sensation like the room is spinning. He has not had any change in his blood pressure medication. He has not drink as much water as he typically has. I repeated the review of systems he has no chest pain no shortness of breath or difficulty breathing. He has had no nausea vomiting abdominal pain. No fever no chills. No diarrhea. Just relates that he has felt lightheaded upon standing. He usually drinks a lot of water on the daily basis although has not done so today as he has been outside working. The patient's blood pressure typically is in the 150s systolically although he is in 90 systolically here in the emergency department. CT of the head per radiology has been resulted no plain CT evidence of acute intercranial process. CT cervical spine per radiology shows no fracture or subluxation per radiology. An EKG was completed. Labs were drawn. IV was established 1 L of LR wide open. Laboratory evaluation with a CBC, WBC 9.7 hemoglobin 17.8 concerning for dehydration platelet 188. CMP with a potassium of 3.4 creatinine 1.7 with a BUN of 18 which is quite elevated from his baseline, glucose 111 normal liver enzymes. Lactic acid 3.5 Troponin is elevated at 111 ASA 324mg PO given due to the elevated troponin. Again this patient denied any chest pain shortness of breath or difficulty breathing. No chest pressure. Just complained of dizziness most of the day. Urinalysis is noninfectious appearing. He has some ketones at 15 trace protein small bilirubin. Alcohol level is 84. Covid screen is negative. Patient's blood pressure did improve after the above 1 L of fluid. I feel that his lactic acidosis as well as his hypotension is most likely due to dehydration especially with his quite elevated hemoglobin and his hypotension. I am unsure of why he has this elevated troponin as he has not had any chest pain. I called and spoke with the hospitalist on-call at [facility] in [place]. They do not have any beds and they do not advise transfer at this time as he does not have any EKG changes nor does he have any chest pain. Guidance was given from the hospitalist to repeat troponins if he develops any chest pain repeat an EKG and start the patient on heparin otherwise trend the troponins hydrate the patient tonight repeat labs and contact the hospitalist back again in the morning. I discussed with the patient my concern for his hypotension dehydration his acute kidney injury as well as his elevated troponins. Unsure of why his troponin is mildly elevated as he has not had any chest pain or other discomfort. His EKG is unchanged from previous. I discussed the plan of care as laid out by the hospitalist from [facility] in [place]. He is comfortable with this plan his questions are answered. I explained to him quite extensively if he develops any new symptoms to notify the nurse so that we can reevaluate the patient at that time. He is comfortable with this plan for observation. Departure - Departure Time of Disposition: 20:00 Disposition: Refer to Observation Clinical Impression: Dehydration, ELAINE (acute kidney injury), Elevated troponin I measurement Fall Qualifiers: Encounter type: initial encounter Qualified Code(s): W19.XXXA - Unspecified fall, initial encounter Hypotension Qualifiers: Hypotension type: unspecified hypotension type Qualified Code(s): I95.9 - Hypotension, unspecified Laceration of forehead Qualifiers: Encounter type: initial encounter Qualified Code(s): S01.81XA - Laceration without foreign body of other part of head, initial encounter Acute alcohol intoxication Qualifiers: Complication of substance-induced condition: uncomplicated Qualified Code(s): F10.920 - Alcohol use, unspecified with intoxication, uncomplicated - Discharge Information Sepsis Event Note (ED) - Evaluation Sepsis Screening Result: No Definite Risk - Focused Exam Vital Signs: Vital Signs Temp Pulse Resp BP Pulse Ox 08/20/20 20:15 78 117/73 98 08/20/20 19:10 106/60 08/20/20 18:05 98.6 F 84 18 98/67 96 - Problem List & Annotations (1) Coccyx pain SNOMED Code(s): 38892750 Code(s): M53.3 - SACROCOCCYGEAL DISORDERS, NOT ELSEWHERE CLASSIFIED Status: Acute Current Visit: Yes (2) ELAINE (acute kidney injury) SNOMED Code(s): 00814993, 47104785 Code(s): N17.9 - ACUTE KIDNEY FAILURE, UNSPECIFIED Status: Acute Current Visit: Yes (3) Acute alcoholic intoxication SNOMED Code(s): 61321950, 22868983 Code(s): F10.929 - ALCOHOL USE, UNSPECIFIED WITH INTOXICATION, UNSPECIFIED Status: Acute Current Visit: Yes Qualifiers: Complication of substance-induced condition: uncomplicated Qualified Code(s): F10.920 - Alcohol use, unspecified with intoxication, uncomplicated (4) Dehydration SNOMED Code(s): 01466800 Code(s): E86.0 - DEHYDRATION Status: Acute Current Visit: Yes (5) Elevated troponin I measurement SNOMED Code(s): 315879840 Code(s): R77.8 - OTHER SPECIFIED ABNORMALITIES OF PLASMA PROTEINS Status: Acute Current Visit: Yes (6) Fall SNOMED Code(s): 5177808, 783100942 Code(s): W19.XXXA - UNSPECIFIED FALL, INITIAL ENCOUNTER Status: Acute Current Visit: Yes Qualifiers: Encounter type: initial encounter Qualified Code(s): W19.XXXA - Unspecified fall, initial encounter (7) Hypotension SNOMED Code(s): 92655617 Code(s): I95.9 - HYPOTENSION, UNSPECIFIED Status: Acute Current Visit: Yes Qualifiers: Hypotension type: unspecified hypotension type Qualified Code(s): I95.9 - Hypotension, unspecified (8) Laceration of forehead SNOMED Code(s): 909039591 Code(s): S01.81XA - LACERATION W/O FOREIGN BODY OF OTH PART OF HEAD, INIT ENCNTR Status: Acute Current Visit: Yes Qualifiers: Encounter type: initial encounter Qualified Code(s): S01.81XA - Laceration without foreign body of other part of head, initial encounter (9) Pulmonary fibrosis SNOMED Code(s): 00139396 Code(s): J84.10 - PULMONARY FIBROSIS, UNSPECIFIED Status: Acute Current Visit: Yes - My Orders Last 24 Hours: My Active Orders 08/20/20 18:13 Vaccines to be Administered [RC] PER UNIT ROUTINE 08/20/20 19:25 Sodium Chloride 0.9% [Saline Flush] 10 ml FLUSH ASDIRECTED PRN Peripheral IV Insertion Adult [OM.PC] Stat 08/20/20 19:26 EKG Documentation Completion [RC] STAT - Assessment/Plan Admission H&P: Please use this note as an admission H&P Last 24 Hours: My Active Orders 08/20/20 18:13 Vaccines to be Administered [RC] PER UNIT ROUTINE 08/20/20 19:25 Sodium Chloride 0.9% [Saline Flush] 10 ml FLUSH ASDIRECTED PRN Peripheral IV Insertion Adult [OM.PC] Stat 08/20/20 19:26 EKG Documentation Completion [RC] STAT Assessment:: A/P Patient will be admitted into the hospital under observation and close following for the below concerns. #1 Fall-closed head injury. Forehead lacerations. CT of the head negative in the emergency department. CT cervical spine negative in the emergency department. His fall was most likely due to hypotension from dehydration see below. Neurochecks every shift. Dermabond laceration can be left alone. Suture laceration will be cleansed twice daily with sterile water and chlorhexidine bacitracin and bandage until healed. Tetanus was updated in the emergency department. #2 Lightheadedness-most likely due to the #4. No focal neurological deficits. CT of the head was negative. We will hydrate with IV fluids as per #4. #3 Hypotension-most likely due to #4. Poor fluid intake. #4 Dehydration-Due to decreased oral intake. 1 liter of LR given in the ED and will give LR 150mls/hr over night. Hgb of 17.8 #5 ELAINE from #4. Fluids as per #4. Repeat labs in the morning I/Os. #6 Elevated troponin. No CP no EKG changes. Could be from dehydration and ELAINE. Will give ASA 324mg daily. I had spoke with the hospitalist carton stapler at [facility] Dr. Siddiqui and at this time with no EKG changes and no chest pain trend the troponins. If develops CP or EKGs changes heparin bolus and gtt and contact [facility]. They do not currently have any beds and with no CP or teletypesetter monitor and trend and contact in the morning. #7 Acute alcohol intoxication in the presence of alcoholism. His alcohol is only 84 in the ED. Longstanding history of alcoholism. He is supposed to be taking naltrexone for his chronic alcoholism although he has discontinued this while he has been taking his hydrocodone for his coccyx pain. He is uninterested in any assistance with his alcoholism at this time. We will place him on CIWA scoring. He relates that he is only been having 2 drinks a day. #8 Coccyx pain. He has been treated for a coccyx fracture about 2 months ago. Initially was on Oxycodone but has been decreased to [place] 5/325, 1 tab tid. We will continue this pain regimen in the ED as well and his neurontin. We will also continue his lidocerm cymbalta #9 Pulmonary Fibrosis continue home medications. #10 HTN continue home medications. VTE-Short stay, TEDs Sepsis- No signs of infection at this time. Lactic acid elevation most likely due to dehydration. No fever no elevated WBC no other signs of infection. Full code. Will admit the patient into the hospital for serial monitoring of his troponins and discuss care in the morning with [facility] in [place]. Provided the patient does not have any chest pain and his troponin is improving we will contact the hospitalist back at [facility] in the morning and determine plan at that time. Hopefully his troponins will resolve through the night as we improve his kidney function and his dehydration. Please use this ER note as admission H&P.
[2020-08-20 20:11] LABS: CHLORIDE,CL 98 mmol/L (98-107); SODIUM,NA 137 mmol/L (136-145)
[2020-08-20 20:14] LABS: ANION GAP 19.4 mmol/L (5-15)
[2020-08-20] MEDS ORDERED: Aspirin 81 MG Tab.Chew PO ONE (20:29)
--- NOTE | 2020-08-20 20:39 | PCM.EKG ---
#1 Interpretation EKG Date: 08/20/20 Time: 19:24 Rhythm: NSR Rate (Beats/Min): 83 [place]: LAD-Left [place] Deviation P-Wave: Present QRS: Normal ST-T: Normal QT: Normal Comparison: NA - No Prior EKG
[2020-08-20] MEDS ORDERED: Lactated Ringers 1,000 ML IV SCH (21:15)
[2020-08-20 21:46] LABS: PTT,PARTIAL THROMBOPLSTIN TIME 24.2 SEC (25.6-32.8)
[2020-08-20] MEDS: Acetaminophen 325 MG Tab PO PRN (22:50)
[2020-08-20] MEDS: Lactated Ringers 1,000 ML IV SCH (22:50)
[2020-08-20] MEDS: Acetaminophen/HYDROcodone 325-5 MG Tab PO PRN (22:52)
[2020-08-20] MEDS ORDERED: Cyclobenzaprine 10 MG Tab PO PRN (23:19)
[2020-08-20] MEDS ORDERED: Albuterol HFA 18 Gm Inhaler INH PRN (23:27)
[2020-08-21] MEDS: Lactated Ringers 1,000 ML IV SCH ×2 (02:54→10:37)
[2020-08-21] MEDS: Acetaminophen 325 MG Tab PO PRN (04:42)
[2020-08-21] MEDS: Acetaminophen/HYDROcodone 325-5 MG Tab PO PRN (06:25)
[2020-08-21] MEDS ORDERED: Pantoprazole 40 MG Tab.CR PO SCH (07:00)
[2020-08-21 07:26] LABS: CHLORIDE,CL 100 mmol/L (98-107); SODIUM,NA 139 mmol/L (136-145)
[2020-08-21] MEDS: Gabapentin 300 MG Cap PO SCH ×2 (07:43→12:25)
[2020-08-21 07:52] LABS: ANION GAP 12.5 mmol/L (5-15)
[2020-08-21] MEDS ORDERED: Hydrochlorothiazide/Triamterene 25-37.5 Tab PO SCH (08:00)
[2020-08-21] MEDS ORDERED: Tiotropium Bromide 4 GM Inhalation Spray (2.5mcg/1 dose; 10 doses) SCH (08:00)
[2020-08-21] MEDS ORDERED: Mometasone Furoate Powder 220 MCG/Puff 14 Dose Inhaler INH SCH (08:00)
[2020-08-21] MEDS ORDERED: DULoxetine 30 MG Cap PO SCH (08:00)
[2020-08-21] MEDS ORDERED: Thiamine 100 MG Tab PO SCH (08:00)
[2020-08-21] MEDS ORDERED: Aspirin 81 MG Tab.Chew PO SCH (08:00)
[2020-08-21] MEDS ORDERED: Folic Acid 1 MG Tab PO SCH (08:00)
[2020-08-21] MEDS ORDERED: Multivitamins with Iron/Calcium/Folic Acid/Minerals Tab PO SCH (08:00)
[2020-08-21] MEDS ORDERED: MOMETASONE FUROATE INH SCH (09:53)
[2020-08-21] MEDS ORDERED: Albuterol HFA 18 Gm Inhaler (OWN SUPPLY) INH PRN (10:00)
--- NOTE | 2020-08-21 10:59 | PCM.SN.2 ---
- Free Text/Narrative Note: Patient rested well throughout the night. He did not have any development of chest pain shortness of breath or difficulty breathing. He has been voiding throughout the night. He has not been hypotensive. He has been up and ambulatory and his lightheadedness has resolved. We have trended his troponins throughout the night his initial 1 in the emergency department was 111 then 105 then 104 this morning. I called and spoke with Dr. Bojorquez at [facility] in [place] about the patients elevated troponin without EKG changes no chest pain and steady state of troponin. We also discussed his acute kidney injury as well. He has not been hypotensive. Dr. Cai guidance at this time would be to discharge the patient home as the patient doesn't want to stay or be transfered as [facility] has accepted him this morning and in doing so having a close follow up with a stress test would be the best plan at this time. I called and spoke with the [facility] cardiology group to assist with the follow up of a stress test. The notes from the ER stay hospital stay were faxed to the PA and they will get him scheduled next week.
--- NOTE | 2020-08-21 12:44 | PCM.DCSUM1 ---
Discharge Summary - Hospital Course Brief History: Patient was admitted into the hospital from the emergency department after a near syncopal episode at home when he fell and struck his head. He had 2 lacerations were repaired in the emergency department. He was noted to be hypotensive and acute kidney injury dehydration and mildly intoxicated in the presence of alcoholism. He also had an elevated troponin without any change in his EKG or chest pain. Discussion with internal medicine at [facility] in [place] was to trend his troponins throughout the night. In the morning he had no chest pain no changes in the EKG and his troponin stayed at the same level. Throughout the night. After discussion again with [facility] medicine in [place] we will discharge him home with close follow-up and stress test at the [facility]. Which was set up for him prior to discharge - Discharge Data Discharge Date: 08/21/20 Discharge Disposition: Home, Self-Care 01 Condition: Good - Referral to Home Health Primary Care Physician: April Cavanaugh MD - Discharge Diagnosis/Problem(s) (1) Coccyx pain SNOMED Code(s): 63191684 ICD Code: M53.3 - SACROCOCCYGEAL DISORDERS, NOT ELSEWHERE CLASSIFIED Status: Acute Problem Details: Stable continue his hydrocodone at home. No skin breakdown (2) ELAINE (acute kidney injury) SNOMED Code(s): 06802601, 51170902 ICD Code: N17.9 - ACUTE KIDNEY FAILURE, UNSPECIFIED Status: Acute Problem Details: He had improvement of his acute kidney injury from his initial creatinine of 1.8 down to 1.4. He has been voiding. He has been taking in good fluids. This is not back to his baseline although we are showing improvement. We will make sure that he is well-hydrated at home. Follow-up in the clinic cardiology next week for labs (3) Acute alcoholic intoxication SNOMED Code(s): 82914941, 05115427 ICD Code: F10.929 - ALCOHOL USE, UNSPECIFIED WITH INTOXICATION, UNSPECIFIED Status: Acute Problem Details: He had initial alcohol of 84 it was not rechecked. He denies any assistance with alcohol is him he denies any alcohol treatment. There is no signs of delirium tremors or any signs of withdrawal. He plans to go home and continue drinking. We will continue his chronic vitamin supplementation for his chronic alcoholism. Qualifiers: Complication of substance-induced condition: uncomplicated Qualified Code(s): F10.920 - Alcohol use, unspecified with intoxication, uncomplicated (4) Dehydration SNOMED Code(s): 25250035 ICD Code: E86.0 - DEHYDRATION Status: Acute Problem Details: He has been hydrated well over the night. He received a bolus in the emergency department. He continued hydration throughout the night through the IV as well as orally. He is urinating well. (5) Elevated troponin I measurement SNOMED Code(s): 965754925 ICD Code: R77.8 - OTHER SPECIFIED ABNORMALITIES OF PLASMA PROTEINS Status: Acute Problem Details: We trended his troponins throughout the night. His initial 1 was 111 and he stayed about that #105 throughout the night. He has been receiving aspirin. Repeat EKG this morning does not show any ST elevation depression T wave inversion or other signs of ischemia when reviewed extemporaneously by myself. He never had any chest pain prior to this visit either. Consultation with internal medicine at [facility] recommends cl ose follow-up with cardiology. For an outpatient stress test. Consultation with cardiology at the [facility] we were able to set up a time early next week for a stress test. We will continue his aspirin therapy at home. If anytime he develops chest pain or has syncopal episodes again he is to return to the emergency department. (6) Fall SNOMED Code(s): 4263372, 862190662 ICD Code: W19.XXXA - UNSPECIFIED FALL, INITIAL ENCOUNTER Status: Acute Qualifiers: Encounter type: initial encounter Qualified Code(s): W19.XXXA - Unspecified fall, initial encounter (7) Hypotension SNOMED Code(s): 88688408 ICD Code: I95.9 - HYPOTENSION, UNSPECIFIED Status: Acute Problem Details: This is most likely due to dehydration and acute kidney injury. He has had no signs of hypotension throughout the night. He is up and ambulatory without any symptoms. Qualifiers: Hypotension type: unspecified hypotension type Qualified Code(s): I95.9 - Hypotension, unspecified (8) Laceration of forehead SNOMED Code(s): 852155195 ICD Code: S01.81XA - LACERATION W/O FOREIGN BODY OF OTH PART OF HEAD, INIT ENCNTR Status: Acute Problem Details: Lacerations are well approximated this morning. There is no drainage erythema induration or swelling. Qualifiers: Encounter type: initial encounter Qualified Code(s): S01.81XA - Laceration without foreign body of other part of head, initial encounter (9) Pulmonary fibrosis SNOMED Code(s): 21448352 ICD Code: J84.10 - PULMONARY FIBROSIS, UNSPECIFIED Status: Acute Problem Details: Stable pulmonary fibrosis continue home medications. No complaints at this time. - Patient Summary/Data Hospital Course: This patient was brought to the emergency department on 08-20-20 following an incident at home where he was lightheaded fell and struck his head on the corner of the stove without loss of consciousness. He sustained 2 lacerations from the fall that were repaired in the emergency department one with Dermabond and one with one single running suture along the right upper eyebrow. CT of the head was negative CT cervical spine was negative other than for some chronic changes. He was noted to be hypotensive in the emergency department. He responded well to fluid resuscitation. He was quite dehydrated and in acute kidney injury with a creatinine of 1.8. His EKG showed no ST elevation or depression when reviewed extemporaneously by myself or other signs of ischemia. He had a mildly elevated troponin I high-sensitivity of 111. He was started on aspirin therapy. He never had any chest pain. He was placed under observation overnight after consultation with the internal medicine group at [facility] for trending of his troponins. We trended his troponins throughout the night and the numbers stayed about the same throughout the night. He had no chest pain throughout the night. His EKG in the morning again was unchanged and no signs of ischemia. His hypotension was resolved with fluid hydration. Further consultation with internal medicine at [facility] due to the continued mildly elevated troponin without changes in his EKG or active chest pain guidance was for outpatient stress test to be completed. Were able to consult cardiology at the [facility] and set up an outpatient stress test on Monday or Monday. Patient is aware if he has any recurrent of his syncope or chest pain he is to return to the emergency department immediately. Sutures out in 5 days on his eyebrow. He was mildly intoxicated when he came to the emergency department. His alcohol was 84 he is a well-known chronic alcoholic. Who does not want any assistance with his alcoholism. His hypotension resolved with fluid hydration as well as his acute kidney injury was improving but not back to baseline with a creatinine of 1.4. We will continue fluid hydration at home with close follow-up in the cardiology clinic early next week. - Patient Instructions Diet: Heart Healthy Diet, Low Sodium, Drink 8-10+ Glasses/Day, No Alcoholic Beverages Other/Special Instructions: Home today. NO alcohol. Especially when you are chloe ing narcotics like Hydrocodone and Flexeril and Zanaflex. Make sure you are drinking at minimum 12 8 ounce glasses a water a day. You were well dehydrated when you present and this could of led to your fall. Sutures on the right eye brow. Sutures out in 5 days from the date of placement. Cleanse twice daily with soap and water. Bacitracin and bandage until healed. Watch for signs of infection. Okay for water to run over do not soak your head in water. Dermabond. do not get it wet or pull at it. The dermabond will fall off on its own. Continue all other previous home medications. Start an 81mg ASA daily. [facility], please contact them on monday to see what day this will be scheduled for. This should be completed next week. If you develop any chest pain, chest pressure difficulty breathing or syncope recheck in the ED. - Discharge Plan *PRESCRIPTION DRUG MONITORING PROGRAM REVIEWED*: Not Applicable *COPY OF PRESCRIPTION DRUG MONITORING REPORT IN PATIENT CHAD: Not Applicable Home Medications: Home Meds Albuterol Sulfate [Albuterol Sulfate Hfa] 2 puff INH QID PRN 03/25/20 [History] Budesonide/Formoterol Fumarate [Budesonide-Formoterol 160-4.5] 2 puff INH BID 03/25/20 [History] Cyclobenzaprine HCl 10 mg PO BEDTIME PRN 03/25/20 [History] DULoxetine HCl [Cymbalta] 60 mg PO DAILY 03/25/20 [History] Folic Acid 1 mg PO DAILY 03/25/20 [History] Guaifen/Dextromethorphan/PE [Dm-Guaif-PE 18-200-10 mg/15 ml] 10 ml PO Q6H PRN 03/25/20 [History] HCTZ/Triamterene [Maxzide 25-37.5 MG] 1 tab PO DAILY 03/25/20 [History] Latanoprost/Pf [Latanoprost 0.005% Eye Drop] 1 drop EYEBOTH BEDTIME 03/25/20 [History] Lidocaine HCl/PF [Lidocaine HCl 4% Ampul] 1 applic TOP BID 03/25/20 [History] Multivitamin with Minerals [Multivitamins with Minerals] 1 each PO DAILY 03/25/20 [History] Naltrexone 50 mg PO DAILY 03/25/20 [History] Nicotine [Nicotine Patch] 1 patch TOP DAILY 03/25/20 [History] Pantoprazole [ProTONIX] 40 mg PO BID 03/25/20 [History] Sildenafil [Viagra] 50 mg PO BEDTIME PRN 03/25/20 [History] Sucralfate 1 gm PO BID PRN 03/25/20 [History] Thiamine [Vitamin B-1] 100 mg PO DAILY 03/25/20 [History] Tiotropium [Spiriva HandiHaler] 18 mcg INH DAILY 03/25/20 [History] atorvaSTATin Calcium [Atorvastatin Calcium] 40 mg PO BEDTIME 03/25/20 [History] Aspirin/Caffeine [Mery Back-Body 500-32.5 mg] 1 each PO TID PRN 07/29/20 [History] Gabapentin [Neurontin] 300 mg PO QID 08/13/20 [History] Aspirin 324 mg PO DAILY tab.chew 08/21/20 [Rx] Patient Handouts: Acute Kidney Injury, Adult, Fall Prevention in the Home, Adult, Vtnh-qn-[id number], Hypotension, Gdgb-pk-[id number], Dehydration, Elderly, Lqbv-bw-Fssc, Facial Laceration, Hywk-uw-Jkoi Forms: ED Department Discharge Referrals: April Cavanaugh MD [Primary Care Provider] - - Discharge Summary/Plan Comment DC Time >30 min.: Yes - General Info Date of Service: 08/21/20 Admission Dx/Problem (Free Text: Dehydration Acute kidney injury Vasovagal fall Facial lacerations Acute alcohol intoxication Elevated troponin without changes in EKG or chest pain Subjective Update: Patient is rested throughout the night. He has had no chest pain no shortness of breath palpitations. He has been up to the bathroom multiple times and did not feel lightheaded weak dizzy. No syncopal episode. He does complain of his chronic pain in his coccyx which is being managed by his hydrocodone. He feels back to baseline and he would like to go home. - Review of Systems General: Reports: No Symptoms HEENT: Reports: No Symptoms Pulmonary: Reports: No Symptoms Cardiovascular: Reports: No Symptoms Gastrointestinal: Reports: No Symptoms Genitourinary: Reports: No Symptoms Musculoskeletal: Reports: Other (Coccyx pain although this is chronic) Skin: Reports: No Symptoms Neurological: Reports: Headache Psychiatric: Reports: No Symptoms - Patient Data Vitals - Most Recent: Last Vital Signs Temp 98.3 F 08/21/20 05:15 Pulse 78 08/21/20 05:15 Resp 16 08/21/20 05:15 BP 156/87 H 08/21/20 05:15 Pulse Ox 94 L 08/21/20 05:15 Weight - Most Recent: 240 lb I&O - Last 24 hours: Intake & Output 08/20/20 08/21/20 08/21/20 22:59 06:59 14:59 Intake Total 1400 300 Output Total 350 Balance 1050 300 Lab Results - Last 24 hrs: Laboratory Results - last 24 hr 08/20/20 08/20/20 08/20/20 Range/Units 19:43 19:43 19:43 WBC 9.7 (4.0-10.0) x10^3/uL RBC 4.95 (4.5-6.0) x10^6/uL Hgb 17.8 D (14.0-18.0) g/dL Hct 49.2 (40.0-52.0) % MCV 99.4 H D (78.0-93.0) fL MCH 36.0 H (26.0-32.0) pg MCHC 36.2 H (32.0-36.0) g/dL RDW Coeff of Ethan 12.4 (10.0-15.0) % Plt Count 188 (130-400) x10^3/uL Neut % (Auto) 74.0 (50.0-80.0) % Lymph % (Auto) 15.6 L (25.0-50.0) % [place] % (Auto) 8.6 (2.0-11.0) % Eos % (Auto) 1.1 (0.0-4.0) % Baso % (Auto) 0.7 (0.2-1.2) % PT (9.9-12.5) SEC INR (2.0-3.5) APTT (25.6-32.8) SEC Sodium 137 (136-145) mmol/L Potassium 3.4 L (3.5-5.1) mmol/L Chloride 98 (98-107) mmol/L Carbon Dioxide 23 (21-32) mmol/L Anion Gap 19.4 H (5-15) mmol/L BUN 18 (7-18) mg/dL Creatinine 1.7 H (0.70-1.30) mg/dL Est Cr Clr Drug Dosing TNP Estimated GFR (MDRD) 40 Glucose 111 H (70-99) mg/dL Lactic Acid 3.5 H* (0.4-2.0) mmol/L Calcium 8.8 (8.5-10.1) mg/dL Corrected Calcium 9.0 (8.5-10.1) mg/dL Magnesium 1.9 (1.8-2.4) mg/dL Total Bilirubin 0.7 (0.2-1.0) mg/dL AST 29 (15-37) U/L ALT 35 (16-63) U/L Alkaline Phosphatase 101 (46-116) U/L Creatine Kinase (39-308) U/L Troponin I High Sens 111 H* (<=76) ng/L Total Protein 7.7 (6.4-8.2) g/dL Albumin 3.7 (3.4-5.0) g/dL Globulin 4.0 Albumin/Globulin Ratio 0.93 Urine Color (YELLOW) Urine Appearance (CLEAR) Urine pH (5.0-8.0) Ur Specific [place] Urine Protein (NEGATIVE) mg/dL Urine Glucose (UA) (NEGATIVE) mg/dL Urine Ketones (NEGATIVE) mg/dL Urine Occult Blood (NEGATIVE) Urine Nitrite (NEGATIVE) Urine Bilirubin (NEGATIVE) Urine Urobilinogen (0.2) EU/dL Ur Leukocyte Esterase (NEGATIVE) U Hyaline Cast (Auto) Urine RBC (NOT SEEN) /HPF Urine WBC (NOT SEEN) /HPF Ur Squamous Epith Cells (NOT SEEN) /HPF Urine Bacteria (NOT SEEN) /HPF Urine Mucus (NOT SEEN) /LPF Ethyl Alcohol (0-3) mg/dL SARS CoV-2 RNA Rapid YA (NEGATIVE) 08/20/20 08/20/20 08/20/20 Range/Units 19:43 21:06 21:23 WBC (4.0-10.0) x10^3/uL RBC (4.5-6.0) x10^6/uL Hgb (14.0-18.0) g/dL Hct (40.0-52.0) % MCV (78.0-93.0) fL MCH (26.0-32.0) pg MCHC (32.0-36.0) g/dL RDW Coeff of Ethan (10.0-15.0) % Plt Count (130-400) x10^3/uL Neut % (Auto) (50.0-80.0) % Lymph % (Auto) (25.0-50.0) % [place] % (Auto) (2.0-11.0) % Eos % (Auto) (0.0-4.0) % Baso % (Auto) (0.2-1.2) % PT 11.6 (9.9-12.5) SEC INR 1.0 L (2.0-3.5) APTT 24.2 L (25.6-32.8) SEC Sodium (136-145) mmol/L Potassium (3.5-5.1) mmol/L Chloride (98-107) mmol/L Carbon Dioxide (21-32) mmol/L Anion Gap (5-15) mmol/L BUN (7-18) mg/dL Creatinine (0.70-1.30) mg/dL Est Cr Clr Drug Dosing Estimated GFR (MDRD) Glucose (70-99) mg/dL Lactic Acid (0.4-2.0) mmol/L Calcium (8.5-10.1) mg/dL Corrected Calcium (8.5-10.1) mg/dL Magnesium (1.8-2.4) mg/dL Total Bilirubin (0.2-1.0) mg/dL AST (15-37) U/L ALT (16-63) U/L Alkaline Phosphatase (46-116) U/L Creatine Kinase (39-308) U/L Troponin I High Sens (<=76) ng/L Total Protein (6.4-8.2) g/dL Albumin (3.4-5.0) g/dL Globulin Albumin/Globulin Ratio Urine Color (YELLOW) Urine Appearance (CLEAR) Urine pH (5.0-8.0) Ur Specific [place] Urine Protein (NEGATIVE) mg/dL Urine Glucose (UA) (NEGATIVE) mg/dL Urine Ketones (NEGATIVE) mg/dL Urine Occult Blood (NEGATIVE) Urine Nitrite (NEGATIVE) Urine Bilirubin (NEGATIVE) Urine Urobilinogen (0.2) EU/dL Ur Leukocyte Esterase (NEGATIVE) U Hyaline Cast (Auto) Urine RBC (NOT SEEN) /HPF Urine WBC (NOT SEEN) /HPF Ur Squamous Epith Cells (NOT SEEN) /HPF Urine Bacteria (NOT SEEN) /HPF Urine Mucus (NOT SEEN) /LPF Ethyl Alcohol 84 H (0-3) mg/dL SARS CoV-2 RNA Rapid YA Negative (NEGATIVE) 08/20/20 08/20/20 08/20/20 Range/Units 22:00 23:33 23:33 WBC (4.0-10.0) x10^3/uL RBC (4.5-6.0) x10^6/uL Hgb (14.0-18.0) g/dL Hct (40.0-52.0) % MCV (78.0-93.0) fL MCH (26.0-32.0) pg MCHC (32.0-36.0) g/dL RDW Coeff of Ethan (10.0-15.0) % Plt Count (130-400) x10^3/uL Neut % (Auto) (50.0-80.0) % Lymph % (Auto) (25.0-50.0) % [place] % (Auto) (2.0-11.0) % Eos % (Auto) (0.0-4.0) % Baso % (Auto) (0.2-1.2) % PT (9.9-12.5) SEC INR (2.0-3.5) APTT (25.6-32.8) SEC Sodium (136-145) mmol/L Potassium (3.5-5.1) mmol/L Chloride (98-107) mmol/L Carbon Dioxide (21-32) mmol/L Anion Gap (5-15) mmol/L BUN (7-18) mg/dL Creatinine (0.70-1.30) mg/dL Est Cr Clr Drug Dosing Estimated GFR (MDRD) Glucose (70-99) mg/dL Lactic Acid 2.4 H* (0.4-2.0) mmol/L Calcium (8.5-10.1) mg/dL Corrected Calcium (8.5-10.1) mg/dL Magnesium (1.8-2.4) mg/dL Total Bilirubin (0.2-1.0) mg/dL AST (15-37) U/L ALT (16-63) U/L Alkaline Phosphatase (46-116) U/L Creatine Kinase (39-308) U/L Troponin I High Sens 105 H* (<=76) ng/L Total Protein (6.4-8.2) g/dL Albumin (3.4-5.0) g/dL Globulin Albumin/Globulin Ratio Urine Color Michelle H (YELLOW) Urine Appearance Clear (CLEAR) Urine pH 6.0 (5.0-8.0) Ur Specific [place] 1.020 Urine Protein Trace H (NEGATIVE) mg/dL Urine Glucose (UA) Negative (NEGATIVE) mg/dL Urine Ketones 15 H (NEGATIVE) mg/dL Urine Occult Blood Negative (NEGATIVE) Urine Nitrite Negative (NEGATIVE) Urine Bilirubin Small H (NEGATIVE) Urine Urobilinogen 1.0 (0.2) EU/dL Ur Leukocyte Esterase Negative (NEGATIVE) U Hyaline Cast (Auto) Many Urine RBC 0-5 (NOT SEEN) /HPF Urine WBC 0-5 (NOT SEEN) /HPF Ur Squamous Epith Cells Rare (NOT SEEN) /HPF Urine Bacteria Not seen (NOT SEEN) /HPF Urine Mucus Few H (NOT SEEN) /LPF Ethyl Alcohol (0-3) mg/dL SARS CoV-2 RNA Rapid YA (NEGATIVE) 08/21/20 08/21/20 08/21/20 Range/Units 06:35 06:35 06:35 WBC 6.2 (4.0-10.0) x10^3/uL RBC 4.60 (4.5-6.0) x10^6/uL Hgb 16.4 (14.0-18.0) g/dL Hct 45.6 (40.0-52.0) % MCV 99.1 H (78.0-93.0) fL MCH 35.7 H (26.0-32.0) pg MCHC 36.0 (32.0-36.0) g/dL RDW Coeff of Ethan 12.4 (10.0-15.0) % Plt Count 171 (130-400) x10^3/uL Neut % (Auto) 63.0 (50.0-80.0) % Lymph % (Auto) 21.8 L (25.0-50.0) % [place] % (Auto) 12.7 H (2.0-11.0) % Eos % (Auto) 1.9 (0.0-4.0) % Baso % (Auto) 0.6 (0.2-1.2) % PT (9.9-12.5) SEC INR (2.0-3.5) APTT (25.6-32.8) SEC Sodium 139 (136-145) mmol/L Potassium 3.5 (3.5-5.1) mmol/L Chloride 100 (98-107) mmol/L Carbon Dioxide 30 (21-32) mmol/L Anion Gap 12.5 (5-15) mmol/L BUN 19 H (7-18) mg/dL Creatinine 1.4 H (0.70-1.30) mg/dL Est Cr Clr Drug Dosing 53.89 Estimated GFR (MDRD) 50 Glucose 101 H (70-99) mg/dL Lactic Acid (0.4-2.0) mmol/L Calcium 8.6 (8.5-10.1) mg/dL Corrected Calcium (8.5-10.1) mg/dL Magnesium (1.8-2.4) mg/dL Total Bilirubin (0.2-1.0) mg/dL AST (15-37) U/L ALT (16-63) U/L Alkaline Phosphatase (46-116) U/L Creatine Kinase 113 (39-308) U/L Troponin I High Sens 104 H* (<=76) ng/L Total Protein (6.4-8.2) g/dL Albumin (3.4-5.0) g/dL Globulin Albumin/Globulin Ratio Urine Color (YELLOW) Urine Appearance (CLEAR) Urine pH (5.0-8.0) Ur Specific [place] Urine Protein (NEGATIVE) mg/dL Urine Glucose (UA) (NEGATIVE) mg/dL Urine Ketones (NEGATIVE) mg/dL Urine Occult Blood (NEGATIVE) Urine Nitrite (NEGATIVE) Urine Bilirubin (NEGATIVE) Urine Urobilinogen (0.2) EU/dL Ur Leukocyte Esterase (NEGATIVE) U Hyaline Cast (Auto) Urine RBC (NOT SEEN) /HPF Urine WBC (NOT SEEN) /HPF Ur Squamous Epith Cells (NOT SEEN) /HPF Urine Bacteria (NOT SEEN) /HPF Urine Mucus (NOT SEEN) /LPF Ethyl Alcohol < 3 (0-3) mg/dL SARS CoV-2 RNA Rapid YA (NEGATIVE) Med Orders - Current: Current Medications Acetaminophen (Acetaminophen 325 Mg Tab) 650 mg PO Q4H PRN PRN Reason: Pain (Mild 1-3)/fever Last Admin: 08/21/20 04:42 Dose: 650 mg Documented by: Hydrocodone Bitart/Acetaminophen (Acetaminophen/Hydrocodone 325-5 Mg Tab) 1 tab PO TID PRN PRN Reason: Pain (moderate 4-6) Last Admin: 08/21/20 06:25 Dose: 1 tab Documented by: Albuterol (Albuterol Hfa 18 Gm Inhaler (Own Supply)) 0 gm INH QID PRN PRN Reason: Shortness of Breath Aspirin (Aspirin 81 Mg Tab.Chew) 324 mg PO DAILY [facility] Last Admin: 08/21/20 07:41 Dose: 324 mg Documented by: Atorvastatin Calcium (Atorvastatin 40 Mg Tab) 40 mg PO BEDTIME SHARIFA Cyclobenzaprine HCl (Cyclobenzaprine 10 Mg Tab) 10 mg PO BEDTIME PRN PRN Reason: Muscle Spasm Last Admin: 08/21/20 01:31 Dose: 10 mg Documented by: Duloxetine HCl (Duloxetine 30 Mg Cap) 60 mg PO DAILY [facility] Last Admin: 08/21/20 07:44 Dose: 60 mg Documented by: Folic Acid (Folic Acid 1 Mg Tab) 1 mg PO DAILY [facility] Last Admin: 08/21/20 07:43 Dose: 1 mg Documented by: Gabapentin (Gabapentin 300 Mg Cap) 300 mg PO QID [facility] Last Admin: 08/21/20 12:25 Dose: 300 mg Documented by: Lactated Ringer's (Ringers, Lactated) 1,000 mls @ 150 mls/hr IV ASDIRECTED [facility] Last Admin: 08/21/20 10:37 Dose: 150 mls/hr Documented by: Latanoprost (Latanoprost 0.005% Ophth Soln (Own Supply)) 0 ml EYEBOTH BEDTIME SHARIFA Mometasone Furoate (Mometasone Furoate Powder 220 Mcg/Puff (Use Own Supply Of Symbicort)) 2 puff INH BID [facility] Multivitamins/Minerals (Multivitamins With Iron/Calcium/Folic Acid/Minerals Tab) 1 tab PO DAILY [facility] Last Admin: 08/21/20 07:43 Dose: 1 tab Documented by: Pantoprazole Sodium (Pantoprazole 40 Mg Tab.Cr) 40 mg PO BIDAC [facility] Last Admin: 08/21/20 06:24 Dose: 40 mg Documented by: Sodium Chloride (Sodium Chloride 0.9% 10 Ml Syringe) 10 ml FLUSH ASDIRECTED PRN PRN Reason: Keep Vein Open Thiamine HCl (Thiamine 100 Mg Tab) 100 mg PO DAILY [facility] Last Admin: 08/21/20 07:43 Dose: 100 mg Documented by: Tiotropium [place] (Tiotropium [place] 4 Gm Inhalation [place] (2.5mcg/1 Dose; 10 Doses)) 0 gm .XX DAILY [facility] Last Admin: 08/21/20 07:44 Dose: 2.5 puff Documented by: Triamterene/Hydrochlorothiazide (Hydrochlorothiazide/Triamterene 25-37.5 Tab) 1 each PO DAILY [facility] Last Admin: 08/21/20 07:44 Dose: 1 each Documented by: Discontinued Medications Albuterol (Albuterol Hfa 18 Gm Inhaler) 0 gm INH QID PRN PRN Reason: Shortness of Breath Aspirin (Aspirin 81 Mg Tab.Chew) 324 mg PO ONETIME ONE Stop: 08/20/20 20:30 Last Admin: 08/20/20 20:34 Dose: 324 mg Documented by: Diphtheria/Tetanus/Acell Pertussis (Diphtheria,Pertussis(Acell),Tetanus Vaccine 0.5 Ml Syringe) 0.5 ml IM .ONCE ONE Stop: 08/20/20 18:13 Last Admin: 08/20/20 19:15 Dose: 0.5 ml Documented by: Lactated Ringer's (Ringers, Lactated) 1,000 mls @ 999 mls/hr IV ONETIME ONE Stop: 08/20/20 20:43 Last Admin: 08/20/20 20:00 Dose: 999 mls/hr Documented by: Lactated Ringer's (Ringers, Lactated) 1,000 mls @ 125 mls/hr IV ASDIRECTED [facility] Last Admin: 08/20/20 21:20 Dose: 125 mls/hr Documented by: Lidocaine HCl (Lidocaine 1% 30 Ml Sdv) 30 ml INJECT ONETIME ONE Stop: 08/20/20 18:13 Last Admin: 08/20/20 20:16 Dose: 30 ml Documented by: Mometasone Furoate (Mometasone Furoate Powder 220 Mcg/Puff 14 Dose Inhaler) 2 puff INH BID [facility] Last Admin: 08/21/20 07:42 Dose: Not Given Documented by: Morphine Sulfate (Morphine 2 Mg/Ml Syringe) 2 mg IVPUSH ONETIME ONE Stop: 08/20/20 19:44 Last Admin: 08/20/20 20:11 Dose: 2 mg Documented by: - Exam General: Reports: Alert, Oriented HEENT: Reports: Pupils Equal, Pupils Reactive, EOMI, Mucous Membr. Moist/[place] Neck: Reports: Supple Lungs: Reports: Clear to Auscultation, Normal Respiratory Effort Cardiovascular: Reports: Regular Rate, Regular Rhythm GI/Abdominal Exam: Normal Bowel Sounds, Soft, Non-Tender, Pelvis Stable (Male) Exam: Deferred Rectal (Males) Exam: Deferred Back Exam: Reports: Normal Inspection, Full Range of Motion Extremities: Normal Inspection, No Pedal Edema Skin: Reports: Warm, Dry, Intact Wound/Incisions: Reports: Healing Well, Dressing Dry and Intact, No Drainage. Denies: Erythema Neurological: Reports: No New Focal Deficit Psy/Mental Status: Reports: Alert, Normal Affect, Normal Mood
[2020-08-21] MEDS ORDERED: atorvaSTATin 40 MG Tab PO SCH (20:00)
[2020-08-21] MEDS ORDERED: Latanoprost 0.005% Ophth Soln (own supply) EYEBOTH SCH (20:00)
== END 2020-08-21 13:10 | disposition home or self-care (01) ==
LOC: VM.ED 18:04 → VM.MS 20:57
PROVIDERS: ADMIT Nurse Practitioner Family; ATTEND Nurse Practitioner Family
DX: S09.90XA Unspecified injury of head, initial encounter (principal); S01.81XA Laceration without foreign body of other part of head, initial encounter; E78.00 Pure hypercholesterolemia, unspecified; I50.9 Heart failure, unspecified; I13.0 Hypertensive heart and chronic kidney disease with heart failure and stage 1 through stage 4 chronic kidney disease, or unspecified chronic kidney disease; N18.9 Chronic kidney disease, unspecified; J44.9 Chronic obstructive pulmonary disease, unspecified; E11.22 Type 2 diabetes mellitus with diabetic chronic kidney disease; E11.40 Type 2 diabetes mellitus with diabetic neuropathy, unspecified; E03.9 Hypothyroidism, unspecified; E66.9 Obesity, unspecified; I95.9 Hypotension, unspecified; Z20.822 Contact with and (suspected) exposure to COVID-19; F10.920 Alcohol use, unspecified with intoxication, uncomplicated; M53.3 Sacrococcygeal disorders, not elsewhere classified; N17.9 Acute kidney failure, unspecified; E86.0 Dehydration; R77.8 Other specified abnormalities of plasma proteins; J84.10 Pulmonary fibrosis, unspecified; Z79.899 Other long term (current) drug therapy; Z98.890 Other specified postprocedural states; Z86.73 Personal history of transient ischemic attack (TIA), and cerebral infarction without residual deficits; Z88.8 Allergy status to other drugs, medicaments and biological substances; W19.XXXA Unspecified fall, initial encounter; Z79.82 Long term (current) use of aspirin; Z68.32 Body mass index [BMI] 32.0-32.9, adult
CPT/HCPCS: 12014; 36415; 70450; 72125; 80048; 80053; 80307; 81001; 82550; 83605; 83735; 84484; 85025; 85610; 85730; 90471; 90715; 93005; 96374; 99285-25; A9270-GY; J2270; J7120; U0002

== ENCOUNTER 2021-08-25 21:53 | Observation (INO) | payer OTHER, MEDICARE ==
[2021-08-25 22:56] LABS: CHLORIDE,CL 103 mmol/L (98-107); SODIUM,NA 142 mmol/L (136-145)
[2021-08-25 22:57] LABS: ANION GAP 18.7 mmol/L (5-15); ESTIMATED GFR 50
[2021-08-25] MEDS ORDERED: Sodium Chloride 0.9% 1,000 ML IV ONE (23:01)
[2021-08-26] MEDS ORDERED: Ondansetron 4 MG Tab.DIS PO PRN (02:43)
[2021-08-26] MEDS ORDERED: Sodium Chloride 0.9% 10 ML Syringe FLUSH PRN (02:43)
[2021-08-26] MEDS ORDERED: Acetaminophen 325 MG Tab PO PRN (02:43)
[2021-08-26] MEDS ORDERED: Albuterol HFA 18 Gm Inhaler INH PRN (02:56)
[2021-08-26] MEDS ORDERED: SUMAtriptan 50 MG Tab PO PRN (02:56)
[2021-08-26] MEDS ORDERED: Cyclobenzaprine 10 MG Tab PO PRN (02:56)
[2021-08-26] MEDS ORDERED: Sucralfate 1 GM Tab PO PRN (02:56)
[2021-08-26 06:53] LABS: CHLORIDE,CL 105 mmol/L (98-107); SODIUM,NA 142 mmol/L (136-145)
[2021-08-26] MEDS ORDERED: Pantoprazole 40 MG Tab.CR PO SCH (07:00)
[2021-08-26] MEDS ORDERED: Ipratropium 0.02% 0.5 MG/2.5 ML Neb Soln INH SCH (07:00)
[2021-08-26 07:06] LABS: ANION GAP 17.3 mmol/L (5-15); ESTIMATED GFR > 60
[2021-08-26] MEDS ORDERED: Thiamine 100 MG Tab PO SCH (09:00)
[2021-08-26] MEDS ORDERED: Folic Acid 1 MG Tab PO SCH (09:00)
[2021-08-26] MEDS ORDERED: Lidocaine 4% 5 ML Amp TOP SCH (09:00)
[2021-08-26] MEDS ORDERED: VARENICLINE TARTRATE 1 MG PO SCH (09:00)
[2021-08-26] MEDS ORDERED: DULoxetine 60 MG Cap PO SCH (09:00)
[2021-08-26] MEDS ORDERED: Metoprolol Tartrate 25 MG Tab PO SCH (09:00)
[2021-08-26] MEDS ORDERED: Multivitamins with Iron/Calcium/Folic Acid/Minerals Tab PO SCH (09:00)
[2021-08-26] MEDS ORDERED: Acetaminophen 500 MG Tab PO SCH (09:00)
[2021-08-26] MEDS ORDERED: amLODIPine 5 MG Tab PO SCH (09:00)
[2021-08-26] MEDS ORDERED: Losartan 50 MG Tab PO SCH (09:00)
[2021-08-26] MEDS ORDERED: Nicotine 21 MG/24 Hr Patch TOP SCH (09:00)
[2021-08-26] MEDS ORDERED: Hydrochlorothiazide/Triamterene 25-37.5 Tab PO SCH (09:00)
[2021-08-26] MEDS ORDERED: Cholecalciferol (Vitamin D3) 25 MCG Tab PO SCH (09:00)
[2021-08-26] MEDS ORDERED: Non-Formulary Medication 1 Each (Tiotropium [Spiriva Handihaler] 18 MCG Cap) INH SCH (09:00)
[2021-08-26] MEDS ORDERED: hydrOXYzine HCl 10 MG Tab PO SCH (09:00)
[2021-08-26] MEDS ORDERED: Polyethylene Glycol 3350 Powder 17 GM Packet PO SCH (09:00)
[2021-08-26] MEDS ORDERED: Insulin Lispro 100 Units/ML 3 ML Vial SUBCUT SCH (13:00)
[2021-08-26] MEDS ORDERED: FORMOTEROL INH SCH (21:00)
[2021-08-26] MEDS ORDERED: BUDESONIDE INH SCH (21:00)
[2021-08-26] MEDS ORDERED: Insulin Glarg,Human.Rec.Analog 100 Unit/ML SUBCUT SCH (21:00)
[2021-08-26] MEDS ORDERED: LATANOPROST 0.005% EYEBOTH SCH (21:00)
[2021-08-26] MEDS ORDERED: traZODone 50 MG Tab PO SCH (21:00)
[2021-08-26] MEDS ORDERED: atorvaSTATin 40 MG Tab PO SCH (21:00)
[2021-08-26] MEDS ORDERED: Melatonin 3 MG Tab PO SCH (21:00)
== END 2021-08-26 13:10 | disposition home or self-care (01) ==
LOC: VM.ED 21:53 → VM.MS 08-26 02:33
PROVIDERS: ADMIT Physician Assistant Medical; ATTEND Physician Assistant Medical
DX: R77.8 Other specified abnormalities of plasma proteins (principal); F10.920 Alcohol use, unspecified with intoxication, uncomplicated; J44.9 Chronic obstructive pulmonary disease, unspecified; E78.00 Pure hypercholesterolemia, unspecified; I13.0 Hypertensive heart and chronic kidney disease with heart failure and stage 1 through stage 4 chronic kidney disease, or unspecified chronic kidney disease; N18.9 Chronic kidney disease, unspecified; I50.9 Heart failure, unspecified; N40.0 Benign prostatic hyperplasia without lower urinary tract symptoms; E11.42 Type 2 diabetes mellitus with diabetic polyneuropathy; E11.22 Type 2 diabetes mellitus with diabetic chronic kidney disease; E66.9 Obesity, unspecified; G40.909 Epilepsy, unspecified, not intractable, without status epilepticus; F17.200 Nicotine dependence, unspecified, uncomplicated; W19.XXXA Unspecified fall, initial encounter; Z88.5 Allergy status to narcotic agent; Z79.899 Other long term (current) drug therapy; Z86.73 Personal history of transient ischemic attack (TIA), and cerebral infarction without residual deficits; Z98.890 Other specified postprocedural states
CPT/HCPCS: 36415; 70450; 71045; 72125; 72128; 80048; 80053; 80307; 82550; 82947; 83615; 84484; 85025; 86140; 93005; 96360; 96361; 99285; A9270; G0378; J7030

== ENCOUNTER 2022-01-12 20:05 | Emergency (ER) | payer OTHER, MEDICARE ==
[2022-01-12] MEDS ORDERED: Sodium Chloride 0.9% 10 ML Syringe FLUSH PRN (20:15)
[2022-01-12] MEDS ORDERED: Ondansetron 4 MG/2 ML SDV IVPUSH ONE ×2 (20:15→20:55)
[2022-01-12] MEDS ORDERED: fentaNYL 50 MCG/ML SDV IVPUSH ONE ×2 (20:15→20:55)
[2022-01-12] MEDS ORDERED: Sodium Chloride 0.9% 1,000 ML IV ONE (20:24)
[2022-01-12 20:44] LABS: CHLORIDE,CL 99 mmol/L (98-107); SODIUM,NA 140 mmol/L (136-145)
[2022-01-12 20:45] LABS: ESTIMATED GFR 58 mL/min (>=60)
[2022-01-12] MEDS ORDERED: Take Home: Ondansetron 4 MG Tab.DIS, 5 Tab Pack PO ONE (22:46)
== END 2022-01-12 23:22 | disposition home or self-care (01) ==
LOC: VM.ED 20:05
DX: R10.11 Right upper quadrant pain (principal); I11.0 Hypertensive heart disease with heart failure; I50.9 Heart failure, unspecified; J44.9 Chronic obstructive pulmonary disease, unspecified; E78.00 Pure hypercholesterolemia, unspecified; E11.9 Type 2 diabetes mellitus without complications; E66.9 Obesity, unspecified; Z68.30 Body mass index [BMI] 30.0-30.9, adult; Z88.5 Allergy status to narcotic agent; Z79.899 Other long term (current) drug therapy; Z79.4 Long term (current) use of insulin
CPT/HCPCS: 80053; 82150; 83690; 85025; 86140; 93005; 96361; 96374; 96375; 96376; 99284; 99285-25; J2405; J3010; J7030; Q0162

== ENCOUNTER 2022-07-03 17:42 | Emergency (ER) | payer OTHER, MEDICARE ==
[2022-07-03] MEDS ORDERED: Ketamine 200 MG/20 ML MDV IVPUSH ONE ×2 (18:03→18:23)
[2022-07-03] MEDS ORDERED: Propofol 200 MG/20 ML SDV ONE (18:55)
== END 2022-07-03 20:00 | disposition short-term general hospital (02) ==
LOC: VM.ED 17:42
DX: T84.021A Dislocation of internal left hip prosthesis, initial encounter (principal); E78.00 Pure hypercholesterolemia, unspecified; E11.42 Type 2 diabetes mellitus with diabetic polyneuropathy; I13.0 Hypertensive heart and chronic kidney disease with heart failure and stage 1 through stage 4 chronic kidney disease, or unspecified chronic kidney disease; E11.22 Type 2 diabetes mellitus with diabetic chronic kidney disease; N18.9 Chronic kidney disease, unspecified; I50.9 Heart failure, unspecified; J44.9 Chronic obstructive pulmonary disease, unspecified; K21.9 Gastro-esophageal reflux disease without esophagitis; E66.9 Obesity, unspecified; Z68.29 Body mass index [BMI] 29.0-29.9, adult; Z86.73 Personal history of transient ischemic attack (TIA), and cerebral infarction without residual deficits; Z88.5 Allergy status to narcotic agent; Z79.4 Long term (current) use of insulin; Z79.899 Other long term (current) drug therapy
CPT/HCPCS: 27250; 27265; 99283; 99285

== ENCOUNTER 2022-07-28 11:48 | Emergency (ER) | payer OTHER, MEDICARE ==
[2022-07-28] MEDS ORDERED: Sodium Chloride 0.9% 10 ML Syringe FLUSH PRN (12:00)
[2022-07-28] MEDS ORDERED: HYDROmorphone 1 MG/ML Syringe IVPUSH ONE ×2 (12:00→12:51)
[2022-07-28] MEDS ORDERED: HYDROmorphone 1 MG/ML Syringe ONE (13:00)
== END 2022-07-28 13:05 | disposition short-term general hospital (02) ==
LOC: VM.ED 11:48 → SUPCPDRO 11:48 → VM.ED 13:05
DX: T84.021A Dislocation of internal left hip prosthesis, initial encounter (principal); E78.00 Pure hypercholesterolemia, unspecified; J44.9 Chronic obstructive pulmonary disease, unspecified; K21.9 Gastro-esophageal reflux disease without esophagitis; I13.0 Hypertensive heart and chronic kidney disease with heart failure and stage 1 through stage 4 chronic kidney disease, or unspecified chronic kidney disease; E11.22 Type 2 diabetes mellitus with diabetic chronic kidney disease; N18.9 Chronic kidney disease, unspecified; I50.9 Heart failure, unspecified; E66.9 Obesity, unspecified; Z68.28 Body mass index [BMI] 28.0-28.9, adult; Z88.5 Allergy status to narcotic agent; Z79.899 Other long term (current) drug therapy; Z79.4 Long term (current) use of insulin
CPT/HCPCS: 96374; 96376; 99285-25; J1170

== ENCOUNTER 2022-09-08 17:07 | Emergency (ER) | payer OTHER, MEDICARE ==
[2022-09-08] MEDS ORDERED: Tamsulosin 0.4 MG Cap.ER PO ONE ×2 (17:56→19:03)
== END 2022-09-08 18:47 | disposition home or self-care (01) ==
LOC: VM.ED 17:07
DX: I11.0 Hypertensive heart disease with heart failure (principal); R33.9 Retention of urine, unspecified; E78.00 Pure hypercholesterolemia, unspecified; I13.0 Hypertensive heart and chronic kidney disease with heart failure and stage 1 through stage 4 chronic kidney disease, or unspecified chronic kidney disease; E11.22 Type 2 diabetes mellitus with diabetic chronic kidney disease; N18.9 Chronic kidney disease, unspecified; I50.9 Heart failure, unspecified; J44.9 Chronic obstructive pulmonary disease, unspecified; K21.9 Gastro-esophageal reflux disease without esophagitis; M19.90 Unspecified osteoarthritis, unspecified site; E05.90 Thyrotoxicosis, unspecified without thyrotoxic crisis or storm; E66.9 Obesity, unspecified; Z68.30 Body mass index [BMI] 30.0-30.9, adult; Z88.5 Allergy status to narcotic agent; Z79.899 Other long term (current) drug therapy; Z79.4 Long term (current) use of insulin
CPT/HCPCS: 51702; 99283; 99284; A9270-GY

== ENCOUNTER 2023-01-27 15:13 | Emergency (ER) | payer OTHER ==
[2023-01-27 15:43] LABS: BASOPHILS ABSOLUTE AUTO 0.1 x10^3/uL (0.0-0.2); BASOPHILS PERCENT AUTO 0.9 % (0.2-1.2); EOSINOPHILS ABSOLUTE AUTO 0.2 x10^3/uL (0.0-0.5); EOSINOPHILS PERCENT AUTO 2.4 % (0.0-4.0); HEMATOCRIT 39.3 % (40.0-52.0); HEMOGLOBIN 13.8 g/dL (14.0-18.0); IMMATURE GRAN ABSOLUTE AUTO 0.02 x10^3/uL (0.00-0.07); LYMPHOCYTES ABSOLUTE AUTO 1.4 x10^3/uL (1.0-4.8); LYMPHOCYTES PERCENT AUTO 21.2 % (25.0-50.0); MEAN CORPUSCULAR HEMOGLOBIN 32.3 pg (26.0-32.0); MEAN CORPUSCULAR HGB CONC 35.1 g/dL (32.0-36.0); MONOCYTES ABSOLUTE AUTO 0.4 x10^3/uL (0.0-0.8); MONOCYTES PERCENT AUTO 5.5 % (2.0-11.0); NEUTROPHILS ABSOLUTE AUTO 4.7 x10^3/uL (1.8-7.7); NEUTROPHILS PERCENT AUTO 69.7 % (50.0-80.0); PLATELET COUNT,PLT 211 x10^3/uL (130-400); RED BLOOD CELL COUNT 4.27 x10^6/uL (4.5-6.0); WHITE BLOOD CELL COUNT,WBC 6.7 x10^3/uL (4.0-10.0)
[2023-01-27 16:00] LABS: A/G RATIO 1.09; ALANINE AMINOTRANSFERASE,ALT 11 U/L (16-63); ALBUMIN 3.7 g/dL (3.4-5.0); ALKALINE PHOSPHATASE 92 U/L (46-116); ASPARTATE AMNIOTRANSFERASE,AST 15 U/L (15-37); BILIRUBIN TOTAL 0.7 mg/dL (0.2-1.0); BLOOD UREA NITROGEN,BUN 11 mg/dL (7-18); CALCIUM 9.3 mg/dL (8.5-10.1); CARBON DIOXIDE,CO2 25 mmol/L (21-32); CHLORIDE,CL 103 mmol/L (98-107); CREATININE 1.2 mg/dL (0.70-1.30); GLUCOSE RANDOM 143 mg/dL (70-99); POTASSIUM,K 4.4 mmol/L (3.5-5.1); PROTEIN TOTAL,TP 7.1 g/dL (6.4-8.2); SODIUM,NA 138 mmol/L (136-145)
[2023-01-27 16:02] LABS: ANION GAP 14.4 mmol/L (5-15); ESTIMATED GFR 64 mL/min (>=60)
[2023-01-27] MEDS ORDERED: Aspirin 81 MG Tab.Chew PO ONE (16:13)
== END 2023-01-27 17:15 | disposition short-term general hospital (02) ==
LOC: VM.ED 15:13
DX: I21.4 Non-ST elevation (NSTEMI) myocardial infarction (principal); R00.1 Bradycardia, unspecified; I13.0 Hypertensive heart and chronic kidney disease with heart failure and stage 1 through stage 4 chronic kidney disease, or unspecified chronic kidney disease; E11.22 Type 2 diabetes mellitus with diabetic chronic kidney disease; N18.9 Chronic kidney disease, unspecified; I50.9 Heart failure, unspecified; K21.9 Gastro-esophageal reflux disease without esophagitis; J44.9 Chronic obstructive pulmonary disease, unspecified; E11.42 Type 2 diabetes mellitus with diabetic polyneuropathy; E03.9 Hypothyroidism, unspecified; E66.9 Obesity, unspecified; Z68.28 Body mass index [BMI] 28.0-28.9, adult; Z88.5 Allergy status to narcotic agent; Z79.4 Long term (current) use of insulin; Z79.899 Other long term (current) drug therapy; Z79.82 Long term (current) use of aspirin
CPT/HCPCS: 36415; 71046; 80053; 83880; 84484; 85025; 93005; 93010; 99284; 99285; A9270

== ENCOUNTER 2023-02-02 13:10 | Emergency (ER) | payer OTHER ==
[2023-02-02 13:37] LABS: BASOPHILS ABSOLUTE AUTO 0.1 x10^3/uL (0.0-0.2); BASOPHILS PERCENT AUTO 0.6 % (0.2-1.2); EOSINOPHILS ABSOLUTE AUTO 0.2 x10^3/uL (0.0-0.5); EOSINOPHILS PERCENT AUTO 2.3 % (0.0-4.0); HEMATOCRIT 42.7 % (40.0-52.0); HEMOGLOBIN 14.5 g/dL (14.0-18.0); IMMATURE GRAN ABSOLUTE AUTO 0.01 x10^3/uL (0.00-0.07); LYMPHOCYTES ABSOLUTE AUTO 1.3 x10^3/uL (1.0-4.8); LYMPHOCYTES PERCENT AUTO 16.5 % (25.0-50.0); MEAN CORPUSCULAR HEMOGLOBIN 32.1 pg (26.0-32.0); MEAN CORPUSCULAR VOLUME 94.5 fL (78.0-93.0); MONOCYTES ABSOLUTE AUTO 0.6 x10^3/uL (0.0-0.8); MONOCYTES PERCENT AUTO 7.4 % (2.0-11.0); NEUTROPHILS ABSOLUTE AUTO 5.8 x10^3/uL (1.8-7.7); NEUTROPHILS PERCENT AUTO 73.1 % (50.0-80.0); PLATELET COUNT,PLT 189 x10^3/uL (130-400); RED BLOOD CELL COUNT 4.52 x10^6/uL (4.5-6.0)
[2023-02-02 13:57] LABS: A/G RATIO 1.13; ALANINE AMINOTRANSFERASE,ALT 18 U/L (16-63); ALBUMIN 3.4 g/dL (3.4-5.0); ALKALINE PHOSPHATASE 88 U/L (46-116); BILIRUBIN TOTAL 0.6 mg/dL (0.2-1.0); BLOOD UREA NITROGEN,BUN 18 mg/dL (7-18); C-REACTIVE PROTEIN 0.92 mg/dL (<=0.50); CALCIUM 9.1 mg/dL (8.5-10.1); CARBON DIOXIDE,CO2 29 mmol/L (21-32); CHLORIDE,CL 101 mmol/L (98-107); CREATINE KINASE,CK 53 U/L (39-308); CREATININE 1.2 mg/dL (0.70-1.30); GLUCOSE RANDOM 151 mg/dL (70-99); PROTEIN TOTAL,TP 6.4 g/dL (6.4-8.2); SODIUM,NA 136 mmol/L (136-145)
[2023-02-02 13:58] LABS: ESTIMATED GFR 64 mL/min (>=60)
[2023-02-02 14:06] LABS: ASPARTATE AMNIOTRANSFERASE,AST 10 U/L (15-37)
[2023-02-02] MEDS ORDERED: Hydrocortisone Sodium Succinate 100 MG/2 ML SDV IVPUSH ONE (14:57)
[2023-02-02] MEDS ORDERED: Lactated Ringers 1,000 ML IV ONE (15:33)
== END 2023-02-02 16:10 | disposition short-term general hospital (02) ==
LOC: VM.ED 13:10
DX: I48.91 Unspecified atrial fibrillation (principal); I48.92 Unspecified atrial flutter; I13.0 Hypertensive heart and chronic kidney disease with heart failure and stage 1 through stage 4 chronic kidney disease, or unspecified chronic kidney disease; N18.9 Chronic kidney disease, unspecified; I50.9 Heart failure, unspecified; E11.22 Type 2 diabetes mellitus with diabetic chronic kidney disease; E66.9 Obesity, unspecified; K21.9 Gastro-esophageal reflux disease without esophagitis; J44.9 Chronic obstructive pulmonary disease, unspecified; E11.42 Type 2 diabetes mellitus with diabetic polyneuropathy; F17.200 Nicotine dependence, unspecified, uncomplicated; Z86.73 Personal history of transient ischemic attack (TIA), and cerebral infarction without residual deficits; Z79.899 Other long term (current) drug therapy; Z79.82 Long term (current) use of aspirin; Z79.4 Long term (current) use of insulin; Z88.5 Allergy status to narcotic agent
CPT/HCPCS: 36415; 80053; 82550; 84484; 85025; 86140; 93005; 93010; 96361; 96374; 99284; 99285-25; J1720; J7120

== ENCOUNTER 2024-08-14 22:17 | Emergency (ER) | payer OTHER ==
[2024-08-14] MEDS ORDERED: Sodium Chloride 0.9% 10 ML Syringe FLUSH PRN (22:36)
[2024-08-14] MEDS: Sodium Chloride 0.9% 500 ML IV ONE (22:48)
[2024-08-14] MEDS: Diltiazem 50 MG/10 ML SDV IVPUSH ONE (22:48)
[2024-08-14 22:50] LABS: BASOPHILS ABSOLUTE AUTO 0.1 x10^3/uL (0.0-0.2); BASOPHILS PERCENT AUTO 0.7 % (0.2-1.2); EOSINOPHILS ABSOLUTE AUTO 0.2 x10^3/uL (0.0-0.5); EOSINOPHILS PERCENT AUTO 2.3 % (0.0-4.0); HEMATOCRIT 41.1 % (40.0-52.0); HEMOGLOBIN 14.1 g/dL (14.0-18.0); IMMATURE GRAN ABSOLUTE AUTO 0.01 x10^3/uL (0.00-0.07); LYMPHOCYTES ABSOLUTE AUTO 1.6 x10^3/uL (1.0-4.8); LYMPHOCYTES PERCENT AUTO 21.4 % (25.0-50.0); MEAN CORPUSCULAR HEMOGLOBIN 32.2 pg (26.0-32.0); MEAN CORPUSCULAR HGB CONC 34.3 g/dL (32.0-36.0); MEAN CORPUSCULAR VOLUME 93.8 fL (78.0-93.0); MONOCYTES ABSOLUTE AUTO 0.5 x10^3/uL (0.0-0.8); NEUTROPHILS ABSOLUTE AUTO 5.2 x10^3/uL (1.8-7.7); NEUTROPHILS PERCENT AUTO 68.5 % (50.0-80.0); PLATELET COUNT,PLT 204 x10^3/uL (130-400); RED BLOOD CELL COUNT 4.38 x10^6/uL (4.5-6.0); WHITE BLOOD CELL COUNT,WBC 7.5 x10^3/uL (4.0-10.0)
[2024-08-14 23:04] LABS: A/G RATIO 1.43; ALANINE AMINOTRANSFERASE,ALT 18 U/L (16-63); ALBUMIN 4.3 g/dL (3.4-5.0); ALKALINE PHOSPHATASE 86 U/L (46-116); ANION GAP 13.5 mmol/L (5-15); ASPARTATE AMNIOTRANSFERASE,AST 16 U/L (15-37); BILIRUBIN TOTAL 0.8 mg/dL (0.2-1.0); BLOOD UREA NITROGEN,BUN 20 mg/dL (7-18); CALCIUM 9.6 mg/dL (8.5-10.1); CARBON DIOXIDE,CO2 28 mmol/L (21-32); CHLORIDE,CL 102 mmol/L (98-107); CREATININE 1.1 mg/dL (0.70-1.30); ESTIMATED GFR 70 mL/min (>=60); GLUCOSE RANDOM 96 mg/dL (70-99); POTASSIUM,K 4.5 mmol/L (3.5-5.1); PROTEIN TOTAL,TP 7.3 g/dL (6.4-8.2); SODIUM,NA 139 mmol/L (136-145)
== END 2024-08-15 00:07 | disposition home or self-care (01) ==
LOC: VM.ED 22:17
DX: I48.91 Unspecified atrial fibrillation (principal); I13.0 Hypertensive heart and chronic kidney disease with heart failure and stage 1 through stage 4 chronic kidney disease, or unspecified chronic kidney disease; I50.9 Heart failure, unspecified; N18.9 Chronic kidney disease, unspecified; E78.00 Pure hypercholesterolemia, unspecified; J44.9 Chronic obstructive pulmonary disease, unspecified; K21.9 Gastro-esophageal reflux disease without esophagitis; E11.22 Type 2 diabetes mellitus with diabetic chronic kidney disease; Z86.73 Personal history of transient ischemic attack (TIA), and cerebral infarction without residual deficits; Z88.5 Allergy status to narcotic agent; Z79.51 Long term (current) use of inhaled steroids; Z79.01 Long term (current) use of anticoagulants; Z79.84 Long term (current) use of oral hypoglycemic drugs; Z79.899 Other long term (current) drug therapy
CPT/HCPCS: 36415; 80053; 84484; 85025; 93010; 96374; 99284; 99285; J3490; J7030

== ENCOUNTER 2024-08-15 13:07 | Emergency (ER) | payer OTHER ==
[2024-08-15 14:24] LABS: BASOPHILS PERCENT AUTO 0.5 % (0.2-1.2); EOSINOPHILS ABSOLUTE AUTO 0.1 x10^3/uL (0.0-0.5); EOSINOPHILS PERCENT AUTO 2.2 % (0.0-4.0); HEMATOCRIT 39.9 % (40.0-52.0); HEMOGLOBIN 13.4 g/dL (14.0-18.0); IMMATURE GRAN ABSOLUTE AUTO 0.01 x10^3/uL (0.00-0.07); LYMPHOCYTES ABSOLUTE AUTO 1.2 x10^3/uL (1.0-4.8); LYMPHOCYTES PERCENT AUTO 18.2 % (25.0-50.0); MEAN CORPUSCULAR HGB CONC 33.6 g/dL (32.0-36.0); MEAN CORPUSCULAR VOLUME 95.2 fL (78.0-93.0); MONOCYTES ABSOLUTE AUTO 0.5 x10^3/uL (0.0-0.8); MONOCYTES PERCENT AUTO 8.2 % (2.0-11.0); NEUTROPHILS ABSOLUTE AUTO 4.6 x10^3/uL (1.8-7.7); NEUTROPHILS PERCENT AUTO 70.7 % (50.0-80.0); PLATELET COUNT,PLT 187 x10^3/uL (130-400); RED BLOOD CELL COUNT 4.19 x10^6/uL (4.5-6.0); WHITE BLOOD CELL COUNT,WBC 6.5 x10^3/uL (4.0-10.0)
[2024-08-15] MEDS: Metoprolol Succinate 25 MG Tab.ER PO ONE (14:36)
[2024-08-15] MEDS: Diltiazem 240 MG Cap.ER PO ONE (14:36)
[2024-08-15 14:39] LABS: A/G RATIO 1.2; ALBUMIN 3.6 g/dL (3.4-5.0); ANION GAP 8.8 mmol/L (5-15); BILIRUBIN TOTAL 0.8 mg/dL (0.2-1.0); CALCIUM 8.9 mg/dL (8.5-10.1); CREATININE 1.1 mg/dL (0.70-1.30); EST CRCL DRUG DOSING (CG) 68.5 mL/min; POTASSIUM,K 4.8 mmol/L (3.5-5.1); PROTEIN TOTAL,TP 6.6 g/dL (6.4-8.2)
== END 2024-08-15 14:53 | disposition home or self-care (01) ==
LOC: SUPCPDRO 13:07 → VM.ED 13:07
DX: I48.91 Unspecified atrial fibrillation (principal); I13.0 Hypertensive heart and chronic kidney disease with heart failure and stage 1 through stage 4 chronic kidney disease, or unspecified chronic kidney disease; I50.9 Heart failure, unspecified; N18.9 Chronic kidney disease, unspecified; E78.00 Pure hypercholesterolemia, unspecified; J44.9 Chronic obstructive pulmonary disease, unspecified; K21.9 Gastro-esophageal reflux disease without esophagitis; E11.22 Type 2 diabetes mellitus with diabetic chronic kidney disease; Z86.73 Personal history of transient ischemic attack (TIA), and cerebral infarction without residual deficits; Z88.5 Allergy status to narcotic agent; Z79.51 Long term (current) use of inhaled steroids; Z79.01 Long term (current) use of anticoagulants; Z79.84 Long term (current) use of oral hypoglycemic drugs; Z79.899 Other long term (current) drug therapy
CPT/HCPCS: 80053; 84484; 85025; 93005; 99285; A9270; 93010; 99284

== ENCOUNTER 2024-12-12 13:51 | Emergency (ER) | payer OTHER ==
[2024-12-12 14:19] LABS: BASOPHILS ABSOLUTE AUTO 0.0 x10^3/uL (0.0-0.2); BASOPHILS PERCENT AUTO 0.6 % (0.2-1.2); EOSINOPHILS ABSOLUTE AUTO 0.2 x10^3/uL (0.0-0.5); EOSINOPHILS PERCENT AUTO 2.6 % (0.0-4.0); IMMATURE GRAN ABSOLUTE AUTO 0.01 x10^3/uL (0.00-0.07); IMMATURE GRAN PERCENT AUTO 0.10 % (0.00-0.43); LYMPHOCYTES ABSOLUTE AUTO 1.4 x10^3/uL (1.0-4.8); LYMPHOCYTES PERCENT AUTO 19.8 % (25.0-50.0); MONOCYTES ABSOLUTE AUTO 0.5 x10^3/uL (0.0-0.8); MONOCYTES PERCENT AUTO 6.8 % (2.0-11.0); NEUTROPHILS ABSOLUTE AUTO 5.1 x10^3/uL (1.8-7.7); NEUTROPHILS PERCENT AUTO 70.1 % (50.0-80.0); PLATELET COUNT,PLT 162 x10^3/uL (130-400); RED BLOOD CELL COUNT 3.42 x10^6/uL (4.5-6.0); WHITE BLOOD CELL COUNT,WBC 7.2 x10^3/uL (4.0-10.0)
[2024-12-12] MEDS: Lactated Ringers 1,000 ML IV ONE (14:31)
[2024-12-12 14:55] LABS: A/G RATIO 1.19; ALANINE AMINOTRANSFERASE,ALT 14 U/L (16-63); ASPARTATE AMNIOTRANSFERASE,AST 19 U/L (15-37); BILIRUBIN TOTAL 0.8 mg/dL (0.2-1.0); BLOOD UREA NITROGEN,BUN 28 mg/dL (7-18); CARBON DIOXIDE,CO2 29 mmol/L (21-32); CHLORIDE,CL 100 mmol/L (98-107); CREATININE 1.9 mg/dL (0.70-1.30); ESTIMATED GFR 36 mL/min (>=60); GLUCOSE RANDOM 267 mg/dL (70-99); POTASSIUM,K 3.7 mmol/L (3.5-5.1); PROTEIN TOTAL,TP 5.9 g/dL (6.4-8.2); SODIUM,NA 135 mmol/L (136-145)
== END 2024-12-12 16:05 | disposition home or self-care (01) ==
LOC: VM.ED 13:51
DX: N17.9 Acute kidney failure, unspecified (principal); E86.0 Dehydration; I13.0 Hypertensive heart and chronic kidney disease with heart failure and stage 1 through stage 4 chronic kidney disease, or unspecified chronic kidney disease; I50.9 Heart failure, unspecified; N18.9 Chronic kidney disease, unspecified; K21.9 Gastro-esophageal reflux disease without esophagitis; E78.00 Pure hypercholesterolemia, unspecified; E66.9 Obesity, unspecified; E11.9 Type 2 diabetes mellitus without complications; Z88.5 Allergy status to narcotic agent; Z79.899 Other long term (current) drug therapy; Z68.31 Body mass index [BMI] 31.0-31.9, adult
CPT/HCPCS: 80053; 84484; 85025; 93005; 96360; 99285; J7120; 93010; 99284